=== PATIENT | male | born 1970 | race Caucasian/White ===

== ENCOUNTER 2018-05-24 13:55 | Inpatient (IN) ==
[2018-05-24] MEDS ORDERED: Lidocaine -MPF 1% 5 ML AMPUL INFILT ONE ×2 (14:08→14:29)
[2018-05-24] MEDS ORDERED: Tdap (Boostrix) Vaccine 0.5 ML SYRINGE IM ONE (14:08)
[2018-05-24] MEDS ORDERED: *HR* FentaNYL (PF) 100 MCG/2 ML VIAL IVP ONE (14:08)
--- NOTE | 2018-05-24 14:23 | Emergency Department Note ---
Addendum entered and electronically signed by Enzo Owen DO 05/25/18 10:56: The patient had originally wanted to go home. He attempted to get out of bed but was unable to move. He was in significant pain at that time and was agreeable with admission. I spoke with the admitting hospitalist Dr. Cox who accepted the patient to his service for further management. Original Note: Disposition Clinical Impression: Left hip pain Hand laceration Qualifiers: Encounter type: initial encounter Foreign body presence: without foreign body Laterality: left Qualified Code(s): S61.412A - Laceration without foreign body of left hand, initial encounter Disposition: Home, Self-Care Condition: Good Instructions: Suture Care (ED), Laceration (ED), Hip Pain (ED) Reasons to Return/Additional Instructions: Please take the Flexeril as prescribed as needed for pain. Please be aware that this can make you drowsy. Please follow-up with Dr. Bettencourt with orthopedic surgery. Please call his office first thing Saturday morning at the number provided to schedule an appointment for reevaluation. Please keep your hand dry and clean until evaluated by orthopedic surgery. Please return at any time if worsening of symptoms, loss of sensation, unable to move your hand or any concerns. Prescriptions: Cyclobenzaprine [Flexeril] 10 mg PO BID PRN #14 tablet PRN Reason: muscle spasms Referrals: NONE,PCP [Primary Care Provider] - Dave Bettencourt MD [Partnered Physician] - Forms: ED Satisfaction Letter Time of Disposition: 17:18 Fall HPI - General Chief Complaint: ED Fall Stated Complaint: L hip injury, fall Time Seen by Provider: 05/24/18 14:06 Source: patient, EMS Mode of arrival: EMS Limitations: physical limitation Nursing Notes Reviewed: Yes Vital Signs Reviewed: Yes - History of Present Illness HPI Narrative: 48-year-old male no medical history presents to the ER via EMS with a complaint of left hip pain and left hand pain status post fall. The patient was standing on a lawn chair never he lost his balance. Appears that he cut his left hand against a piece of metal while falling. He landed on his left side. He was unable to stand and had to call for help. He denies any loss of consciousness. No chest pain, shortness of breath, neck pain, back pain. No numbness tingling or paresthesias. No other complaints. Pt Subjective Complaint: fall Onset (ago): [employer] Fall From: standing Place Fall Occurred: home Loss of Consciousness: none Prolonged Down Time?: no Symptoms Prior to Fall: none Context: tripped/slipped Location of injury - extremities: Left: hand, hip Associated symptoms (after fall): Reports: unable to walk. Denies: headache, neck pain, numbness, weakness, chest pain, shortness of breath, abdominal pain - Related Data Previous Rx's Medication Instructions Recorded Ibuprofen [Motrin] 800 mg PO Q8HR #30 tablet 06/21/15 Cyclobenzaprine [Flexeril] 10 mg PO BID PRN #14 tablet 05/24/18 Allergies Allergy/AdvReac Type Severity Reaction Status Date / Time No Known Allergies Allergy Verified 06/23/15 14:36 All systems ED: reviewed and negative except as stated. Cardiovascular: Denies: chest pain Respiratory: Denies: dyspnea Gastrointestinal: Denies: abdominal pain Musculoskeletal: Reports: other (Left hip pain, left hand pain). Denies: back pain, neck pain Neurological: Denies: headache Fall PMH - Past Medical History Medical history: Reports: no medical history Psychiatric history: Reports: no psych history - Social History Smoking Status: Current every day smoker Alcohol use: Reports: none Drug use: Reports: none Physical Exam - General Limitations: no limitations General appearance: alert, in no apparent distress - Head Head exam: atraumatic, normocephalic, normal inspection - Eye Eye exam: Present: normal appearance - ENT ENT exam: normal exam - Neck Neck exam: Present: normal inspection, full ROM. Absent: tenderness - Chest Chest inspection: Present: normal inspection, symmetric chest wall rise. Absent: tenderness - Respiratory Respiratory exam: Present: normal lung sounds bilaterally - Cardiovascular Cardiovascular exam: Present: regular rate, normal rhythm, normal heart sounds - Abdominal Exam Abdominal exam: Present: soft, Non-Tender. Absent: tenderness, distention, guarding, rigidity - Extremities Exam Extremities exam: Present: normal inspection, full ROM - Expanded Upper Extremity Exam Shoulder exam: Present: normal inspection, full ROM Arm exam: Present: normal inspection, full ROM Elbow exam: Present: normal inspection, full ROM Forearm/Wrist exam: Present: normal inspection, full ROM Hand exam: Present: full ROM Hand L/R front image: 1 - laceration (There is a gaping laceration that involves the majority of the volar surface of the left hand over the palmar crease into the subcutaneous tissue. No obvious tendon involvement.) 2 - laceration (Roughly one similar laceration interdigital) Neuromotor exam: Normal: thumb opposition, thumb IP flexion, thumb adduction Neurosensory exam: Normal: radial nerve, ulnar nerve, median nerve Vascular exam: Normal: capillary refill, radial pulse - Expanded Lower Extremity Exam Hip/Pelvis exam: Present: normal inspection, tenderness (The patient has tenderness to the ASIS of the left hip.). Absent: full ROM Upper leg exam: Present: normal inspection Knee exam: Present: normal inspection, other (Left knee is in a knee brace) Lower leg exam: Present: normal inspection, full ROM Ankle exam: Present: normal inspection, full ROM Foot/toe exam: Present: normal inspection, full ROM Neurovascular/Tendon exam: Absent: motor deficit, sensory deficit - Neurological Exam Neurological exam: Present: alert, other (GCS 15, no focal deficits, moves all extremities with the exception of the left leg given his hip pain without difficulty) - Skin Skin exam: Present: warm, dry Course Course Narrative: Patient seen and examined. Vital signs reviewed. Bedside fast negative by my interpretation. Plan for imaging of the left hand and hip. 2 strokes update. Potential laceration repair versus discussed with orthopedics. - Reevaluation(s) Reevaluation #1: Discussed results of hip x-ray with the patient. Still in significant pain. Given a dose of Dilaudid. Plan to obtain CT imaging of the hip. Reevaluation #2: Patient continued to have pain during my laceration repair. I believe he is having muscle spasms at this time. CT imaging reviewed which is negative. Plan to give him some Valium here. Reevaluation #3: Patient still having pain after Valium. Given another milligram of Dilaudid. We discussed admission versus outpatient. He states that he has been somewhat ambulatory maybe 50% of the time since his injury with his knee. He has been walking with crutches. He would prefer not to be admitted at this time and would rather go home. - Consultations Consultation #1: I spoke with the on-call orthopedic surgeon Dr. Bettencourt. I discussed the patient's history, exam, concern for his left hand. He has a gaping wound to the palmar surface of his left hand. Does not appear to involve tendons. Hemostasis achieved at this point. He recommended to place a few 30 sutures and have the patient follow-up in the office for definitive management. Vital Signs Temperature 98.9 F 05/24/18 13:59 Pulse Rate 96 05/24/18 13:59 Respiratory Rate 18 05/24/18 13:59 Blood Pressure 153/102 05/24/18 13:59 O2 Sat by Pulse Oximetry 100 05/24/18 13:59 Temperature 98.9 F 05/24/18 13:59 Pulse Rate 90 05/24/18 17:18 Respiratory Rate 18 05/24/18 17:18 Blood Pressure 151/93 05/24/18 17:18 O2 Sat by Pulse Oximetry 95 05/24/18 17:18 Oxygen Delivery Oxygen Delivery Room Air Procedures - Laceration Laceration 1 Site: hand Side (If applicable): left Size (cm): 8 Description: linear, flap Depth: simple, single layer (w/ subcutaneous involvement) Local Anesthetic: lidocaine 1% Amount of Anesthesia Used (mL): 8 Pre-repair: wound explored, irrigated extensively, deep structures intact, wound margins revised Skin layer closed with: other (prolene) Size: 3-0 Number of sutures/olive: 3 Technique: simple, interrupted Technique: other (3 simple interrupted sutures were placed to loosely ap proximate the main flap over his palmar crease. The wound was extensively irrigated with Water and chlorhexidine scrub was used.) Fall - [facility] Narrative Medical decision making narrative: 48-year-old male presenting with a fall off a lawn chair. No loss of consciousness. Injury sustained to the left hand and hip. He has a complex laceration to the palmar surface of his left hand. This case was discussed with the on-call orthopedic provider who recommended to clean out the wound, approximate with a few sutures and he would see him in the office. CT imaging is unremarkable for the hip. Patient treated for muscle spasms. He is to follow-up on Saturday morning with the orthopedic shoes salesperson. - Radiology Data Radiology results reviewed: Yes I reviewed the patient's radiology results. Hand X-Ray 05/24/18 14:06 IMPRESSION: 1. Laceration with no radiopaque foreign body identified. 2. No acute osseous abnormality evident. D/ / Corby Green MD / Corby Green MD Interpreting Provider: Corby Green MD Hip X-Ray 05/24/18 14:06 IMPRESSION: No acute abnormality detected. D/ / Anil Stahl MD / Anil Stahl MD Interpreting Provider: Anil Stahl MD Hip CT 05/24/18 14:55 IMPRESSION: No acute fracture or dislocation is seen involving the left hip. No soft tissue abnormalities are identified Urinary bladder distention. D/ / Anil Stahl MD / Anil Stahl MD Interpreting Provider: Anil Stahl MD
[2018-05-24] MEDS ORDERED: *HR* HYDROmorphone (PF) 1 MG/ML SYRINGE IVP ONE ×3 (14:55→18:15)
--- NOTE | 2018-05-24 15:50 | Emergency Department Note ---
Disposition Clinical Impression: Left hip pain Hand laceration Qualifiers: Encounter type: initial encounter Foreign body presence: without foreign body Laterality: left Qualified Code(s): S61.412A - Laceration without foreign body of left hand, initial encounter Disposition: Home, Self-Care Condition: Good Instructions: Suture Care (ED), Laceration (ED), Hip Pain (ED) Reasons to Return/Additional Instructions: Please take the Flexeril as prescribed as needed for pain. Please be aware that this can make you drowsy. Please follow-up with Dr. Bettencourt with orthopedic surgery. Please call his office first thing Saturday morning at the number provided to schedule an appointment for reevaluation. Please keep your hand dry and clean until evaluated by orthopedic surgery. Please return at any time if worsening of symptoms, loss of sensation, unable to move your hand or any concerns. Prescriptions: Cyclobenzaprine [Flexeril] 10 mg PO BID PRN #14 tablet PRN Reason: muscle spasms Referrals: Dave Bettencourt MD [Partnered Physician] - NONE,PCP [Primary Care Provider] - Forms: ED Satisfaction Letter General Adult HPI - General Chief complaint: ED Fall Stated complaint: L hip injury, fall Time Seen by Provider: 05/24/18 14:06 Source: patient, EMS Mode of arrival: EMS Limitations: no limitations - History of Present Illness Pain Scale: 10 - Related Data Previous Rx's Medication Instructions Recorded Ibuprofen [Motrin] 800 mg PO Q8HR #30 tablet 06/21/15 Cyclobenzaprine [Flexeril] 10 mg PO BID PRN #14 tablet 05/24/18 Allergies Allergy/AdvReac Type Severity Reaction Status Date / Time No Known Allergies Allergy Verified 06/23/15 14:36 Cardiovascular: Denies: chest pain Respiratory: Denies: dyspnea Gastrointestinal: Denies: abdominal pain Musculoskeletal: Reports: other (Left hip pain, left hand pain). Denies: back pain, neck pain Neurological: Denies: headache Past Medical History - Past Medical History Medical history: Reports: no medical history Psychiatric history: Reports: no psych history - Social History Smoking Status: Current every day smoker Smokeless Tobacco Status: No Alcohol use: Reports: none Drug use: Reports: none Physical Exam - General Limitations: no limitations General appearance: alert, in no apparent distress Course Vital Signs Temperature 98.9 F 12/08/18 13:59 Pulse Rate 96 05/24/18 13:59 Respiratory Rate 18 05/24/18 13:59 Blood Pressure 153/102 05/24/18 13:59 O2 Sat by Pulse Oximetry 100 05/24/18 13:59 Temperature 98.9 F 05/24/18 13:59 Pulse Rate 90 05/24/18 17:18 Respiratory Rate 18 05/24/18 17:18 Blood Pressure 151/93 05/24/18 17:18 O2 Sat by Pulse Oximetry 95 05/24/18 17:18 Oxygen Delivery Oxygen Delivery Room Air Medical Decision Making - Medical Records Medical records reviewed: Yes I reviewed the patient's medical records. - Radiology Data Radiology results reviewed: Yes I reviewed the patient's radiology results. Attestation Statement - Attestation Attestation: I examined this patient and my medical decision-making was reviewed with the Resident Physician. I agree with the documented findings, disposition and treatment plan as described except to the extent set forth below. 48-year-old male presents to the ER for a fall. Patient fell off a lawn chair today. He was oriented a brace in splint to the left lower extremity due to for a meniscal repair and a fractured tibia. He lost his balance and fell off a lawn chair landing on left hip and cut left palm through sheet metal. The laceration extends all the way across the left home. Approximately 4-5 inches length. It does extend down into the subcutaneous fat region. It appears all tendons are intact. He is able to flex all 5 digits without difficulty. This follows along the crease of the left palm. We did speak with orthopedics on-call. They wanted us to put a few stitches in this wound and have him follow up in their office. X-rays of the left hand were negative. X- rays of left hip are normal as well. The left hand laceration was repaired by Dr. Owen. 3 sutures were placed in the left palm. This was supervised by myself. Orthopedics wanted this with loose approximation and they would see him on Saturday for follow-up.
[2018-05-24] MEDS ORDERED: Ketorolac 15 MG/ML VIAL IVP ONE (16:12)
[2018-05-24] MEDS ORDERED: diazePAM 10 MG/2 ML SYRINGE IVP ONE (16:52)
[2018-05-24] MEDS ORDERED: 0.9 % Sodium Chloride 500 ML IVC ONE (18:54)
[2018-05-24] MEDS ORDERED: ceFAZolin 1,000 MG in Water for inj. (sterile) 20 ML 10 ML IVP ONE (19:02)
[2018-05-24 19:22] LABS: Basophils % 0.2 %; Eosinophils # 0.3 K/mcL (0.0-0.6); Eosinophils % 1.9 %; Hematocrit 37.7 % (37.5-50.1); Hemoglobin 12.7 g/dL (12.9-16.9); Immature Granulocytes % 0.4 % (0-4); Lymphocytes % 14.4 %; Mean Corpuscular HGB Conc 33.7 g/dL (31.6-35.5); Mean Corpuscular Hemoglobin 32.1 pg (28.0-33.3); Mean Corpuscular Volume 95.2 fL (83.0-100.0); Mean Platelet Volume 9.5 fL (9.4-12.4); Monocytes # 0.9 K/mcL (0.0-1.3); Monocytes % 6.4 %; Neutrophils # 10.7 K/mcL (1.6-8.9); Platelet Count 389 K/mcL (140-400); Red Blood Count 3.96 M/mcL (4.19-5.50); Red Cell Distribution Width 12.3 % (11.5-14.5); Segmented Neutrophils % 76.7 %
[2018-05-24 19:30] LABS: INR 1.1; Prothrombin Time 12.1 Seconds (9.4-12.1)
[2018-05-24 19:41] LABS: BUN/Creatinine Ratio 13 (6-26); Blood Urea Nitrogen 14 mg/dL (6-20); Calcium 9.3 mg/dL (8.6-10.3); Carbon Dioxide 21 mEq/L (23-29); Chloride 108 mEq/L (98-107); Creatine Kinase 130 Units/L (30-223); Glucose 103 mg/dL (70-105); Osmolality,Calculated 285 (280-300); Potassium 3.8 mEq/L (3.5-5.1); Sodium 137 mEq/L (136-145); eGFR For Non-African Americans > 60 (> 60)
[2018-05-24] MEDS ORDERED: Orphenadrine 60 MG/2 ML VIAL IV ONE (19:56)
[2018-05-24] MEDS ORDERED: Naloxone 0.4 MG/ML INJ IVP PRN (20:32)
[2018-05-24] MEDS: *HR* OxyCODONE Immed Rel 5 MG TABLET PO PRN (21:01)
--- NOTE | 2018-05-24 22:54 | Internal Med History&Physical ---
Date of Encounter: 05/25/18 Time of Encounter: 22:00 Internal Medicine - H&P: HPI Chief complaint: Fall resulting in left hand/hip injury Admitted From: Emergency Dept Plans for Post Hospital Care: Home History of present illness: Mr. Soto is a 48 year old male w/no medical hx presents from the ED w/CC of lacerated left hand and left hip injury sustained when he fell at home today at approximately 13:00. Pt. states he was working at home working with sheet metal and started on a lawn chair to secure sheet-metal when chair broke. Patient reports grabbing this sheet-metal to prevent fall, slicing his left hand and falling with all of his weight on left hip. Patient denies hitting head or LOC, presyncope, or history of falls. Patient does report having left knee procedure on February 05 and recently breaking his left leg after falling off his porch while on crutches. Patient reports severe pain in left hip and hand. No alleviating or aggravating factors. Patient denies recent illness, fever, chills, nausea, vomiting, headache, changes in vision, unusual bleeding, chest pain, shortness of breath, abdominal pain, diarrhea, constipation, dizziness, lightheadedness, numbness, tingling, or syncope. Past Med Surg Social Fam HX - Past Medical History Source: patient, old records reviewed Medical history: no medical history Psychiatric history: no psych history - Past Surgical History Additional surgical history: L meniscus repair, fibula fx & repair - Social History Smoking Status: Current every day smoker Packs per day: < 1 PPWeek Smokeless Tobacco Status: No Alcohol use: none Drug use: none Current living situation: Home, With Family Activity Level: Independent ambulation, Very active Recent Out of Country Travel Within the Last 8 Weeks: No Exposure or Possible Exposure to Illness During Travel: No - Family History Father Race: Family Member Ethnicity: Non- Living Status: Age at : 72 Cause of : Mesothemioma Hx Family Cardiac Disorders: Yes (CAD) Hx Family Respiratory Disorders: Yes (Mesothemioma) Mother Race: Family Member Ethnicity: Non- Living Status: Still Living Hx Family Musculoskeletal Disorders: Yes (Arthritis) Brother Race: Family Member Ethnicity: Non- Living Status: Age at : 44 Cause of : OD Hx Family Psychosocial Disorders: Yes (Drug abuse) Sister History Unknown: Yes Race: Family Member Ethnicity: Non- Living Status: Still Living Internal Medicine - H&P: Meds Ibuprofen [Motrin] 800 mg PO Q8HR #30 tablet 06/21/15 [Rx] Cyclobenzaprine [Flexeril] 10 mg PO BID PRN #14 tablet 05/24/18 [Rx] Allergy/AdvReac Type Severity Reaction Status Date / Time No Known Allergies Allergy Verified 06/23/15 14:36 All Systems PM: A 10-system review of systems was performed and is negative for pertinent findings except as documented above in the HPI. - Constitutional Constitutional: no chills, no fever(s), no night sweats - EENT Eyes: no change in vision, no discharge, no pain, no photophobia Ears: no ear discharge, no ear pain, no tinnitus Nose, mouth and throat: no dysphagia, no nasal discharge, no neck pain, no sore throat - Breasts Breasts: as per HPI - Cardiovascular Cardiovascular ROS IM: no chest pain, no diaphoresis, no dyspnea, no lightheadedness, no palpitations, no syncope - Respiratory Respiratory: no cough, no dyspnea, no wheezing, no excessive phlegm production - Gastrointestinal Gastrointestinal: no abdominal pain, no diarrhea, no hematemesis, no hematochezia, no melena, no nausea, no vomiting - Genitourinary Genitourinary ROS male: as per HPI - Musculoskeletal Musculoskeletal ROS IM: no numbness, no tingling - Integumentary Integumentary IM: no rash, no unusual bruising - Neurological Neurological ROS: no confusion, no convulsions, no focal weakness, no numbness, no tingling, no tremor(s) - Psychiatric Psychiatric: as per HPI - Endocrine Endocrine IM: as per HPI - Hematologic/Lymphatic Hematologic/Lymphatic: no easy bruising - Allergic/Immunologic Allergic/Immunologic: as per HPI - Constitutional Vitals: Temp Pulse Resp BP Pulse Ox 98.9 F 105 16 150/69 94 05/24/18 20:43 05/24/18 20:43 05/24/18 20:43 05/24/18 20:43 05/24/18 21:36 General appearance: Present: cooperative, A&O X 3, pleasant, severe distress (Left hip pain), answers questions appropriately Exam: Patient examined at bedside. Pt. attempting to get comfortable in bed but has s evere pain in left hip w/movement. Some pain in left hand d/t laceration. Pt. denies any other sx or complaints at this time. VS: 98.9F temp, HR 105, RR 16, BP 150/69, SpO2 94% on RA. - Head Head exam: Present: atraumatic, normocephalic - Eye Eye exam: Present: PERRL, conjuntiva pink, sclera anicteric Pupils: Present: PERRL - ENT ENT exam: Present: normal exam - Neck Neck exam general surgery: Present: normal inspection, supple, trachea midline. Absent: lymphadenopathy - Respiratory Respiratory exam: Present: CTAB. Absent: accessory muscle use, rales, rhonchi, wheezes - Cardiovascular Cardiovascular exam: Present: RRR, +S1, +S2. Absent: diastolic murmur, gallop, rubs, systolic murmur - GI/Abdominal GI/Abdominal exam: Present: normal bowel sounds, soft, no peritoneal signs. Absent: distended, tenderness - Rectal Rectal exam: Present: deferred - Additional comments: exam deferred. - Extremities Exam Extremities exam: Present: warm, radial pulses palpable and symmetrical. Absent: calf tenderness, cyanotic, pedal edema - Back Exam Back exam: Present: normal inspection - Neurological Exam Neurological exam: Present: alert, CN II-XII intact, oriented X3, no focal deficits. Absent: pronater drift, facial droop, speech deficit - Psychiatric Psychiatric exam: Present: normal affect, normal mood - Skin Skin exam: Present: dry, intact Internal Med - H&P Results - Labs CBC & Chem 7: 05/24/18 19:06 05/24/18 19:06 Labs: Short CBC 05/24/18 Range/Units 19:06 WBC 14.0 H (4.3-11.1) K/mcL Hgb 12.7 L (12.9-16.9) g/dL Hct 37.7 (37.5-50.1) % Plt Count 389 (140-400) K/mcL Neutrophils # 10.7 H (1.6-8.9) K/mcL BMP 05/24/18 19:06 Sodium 137 Potassium 3.8 Chloride 108 H Carbon Dioxide 21 L BUN 14 Creatinine 1.06 Glucose 103 Calcium 9.3 - Impressions ITS Impressions Hand X-Ray 05/24/18 14:06 IMPRESSION: 1. Laceration with no radiopaque foreign body identified. 2. No acute osseous abnormality evident. D/ / Corby Green MD / Corby Green MD Interpreting Provider: Corby Green MD Hip X-Ray 05/24/18 14:06 IMPRESSION: No acute abnormality detected. D/ / Anil Stahl MD / Anil Stahl MD Interpreting Provider: Anil Stahl MD Hip CT 05/24/18 14:55 IMPRESSION: No acute fracture or dislocation is seen involving the left hip. No soft tissue abnormalities are identified Urinary bladder distention. D/ / Anil Stahl MD / Anil Stahl MD Interpreting Provider: Anil Stahl MD - Diagnostic Studies Other Images Additional comments: Impressions Hand X-Ray 05/24/18 14:06 IMPRESSION: 1. Laceration with no radiopaque foreign body identified. 2. No acute osseous abnormality evident. D/ / Corby Green MD / Corby Green MD Interpreting Provider: Corby Green MD Hip X-Ray 05/24/18 14:06 IMPRESSION: No acute abnormality detected. D/ / Anil Stahl MD / Anil Stahl MD Interpreting Provider: Anil Stahl MD Hip CT 05/24/18 14:55 IMPRESSION: No acute fracture or dislocation is seen involving the left hip. No soft tissue abnormalities are identified Urinary bladder distention. D/ / Anil Stahl MD / Anil Stahl MD Interpreting Provider: Anil Stahl MD - Assessment and plan (1) Left hip pain Current Visit: Yes Status: Acute Assessment and plan: Acute left hip pain d/t fall sustained today at home while working on the house. Pt. states he was standing on a lawn chair trying to secure sheet metal when the chair broke and he fell on left hip w/full weight. Pt. reports severe pain in left hip w/movement. Bed rest. Arvizu catheter ordered d/t immobility and pain w/movement. Orthopedic Surgery consulted in ED and I appreciate the consult and recommendations as always. Stair-step pain medications for pain mgmt. PT/OT consults order for rehabilitation needs for post-discharge planning. Will monitor pt. and f/u labs. Pt. is moderate risk for complications and further morbidity d/t recent fall resulting in broken left leg, fall today resulting in lacerated left hand and left hip injury, severe pain that is not controlled, immobility, and risk for infection d/t laceration of left hand. Observation. (2) Hand laceration Current Visit: Yes Status: Acute Assessment and plan: Acute laceration of left hand sustained during fall when pt. grabbed sheet metal to prevent fall. Stitches in ED. Tdap booster given. Pt. received Ancef in ED and will continue 2,000 mg Q8HR for infection coverage. Orthopedic Surgery consulted in ED and I appreciate the consult and recommendations as always. Stair-step pain medications for pain mgmt. Qualifiers: Encounter type: initial encounter Foreign body presence: without foreign body Laterality: left Qualified Code(s): S61.412A - Laceration without foreign body of left hand, initial encounter (3) DVT prophylaxis Current Visit: Yes Status: Acute Assessment and plan: Bilateral SCDs on LEs for DVT prophylaxis. - Time Spent With Patient Total time spent is greater than 50% in coordination of care (as documented) at patient's floor/unit and/or counseling patient: Greater than 35 minutes
[2018-05-24] MEDS: *HR* HYDROcodone/Acet 5/325 mg TABLET PO PRN (23:34)
[2018-05-25] MEDS: *HR* OxyCODONE Immed Rel 5 MG TABLET PO PRN ×5 (02:58→21:39)
[2018-05-25] MEDS ORDERED: *HR* FentaNYL (PF) 100 MCG/2 ML VIAL IVP ONE (03:02)
[2018-05-25] MEDS: *HR* HYDROcodone/Acet 5/325 mg TABLET PO PRN ×3 (05:47→19:42)
[2018-05-25 06:21] LABS: Basophils % 0.2 %; Eosinophils # 0.2 K/mcL (0.0-0.6); Eosinophils % 2.2 %; Hematocrit 35.6 % (37.5-50.1); Hemoglobin 11.8 g/dL (12.9-16.9); Immature Granulocytes % 0.2 % (0-4); Lymphocytes # 1.7 K/mcL (0.6-4.6); Lymphocytes % 18.5 %; Mean Corpuscular HGB Conc 33.1 g/dL (31.6-35.5); Mean Corpuscular Hemoglobin 32.2 pg (28.0-33.3); Mean Corpuscular Volume 97.3 fL (83.0-100.0); Mean Platelet Volume 9.8 fL (9.4-12.4); Monocytes # 0.8 K/mcL (0.0-1.3); Monocytes % 8.8 %; Neutrophils # 6.3 K/mcL (1.6-8.9); Platelet Count 332 K/mcL (140-400); Red Blood Count 3.66 M/mcL (4.19-5.50); Red Cell Distribution Width 12.3 % (11.5-14.5); Segmented Neutrophils % 70.1 %
[2018-05-25 06:42] LABS: Alanine Aminotransferase 12 Units/L (7-52); Albumin/Globulin Ratio 1.4 (1.1-2.2); Alkaline Phosphatase 89 Units/L (34-104); Aspartate Amino Transferase 12 Units/L (13-39); BUN/Creatinine Ratio 12 (6-26); Bilirubin,Total 0.6 mg/dL (0.3-1.0); Blood Urea Nitrogen 11 mg/dL (6-20); Calcium 9.2 mg/dL (8.6-10.3); Carbon Dioxide 20 mEq/L (23-29); Chloride 103 mEq/L (98-107); Globulin 2.8 g/dL (2.4-3.5); Glucose 101 mg/dL (70-105); Osmolality,Calculated 276 (280-300); Potassium 3.7 mEq/L (3.5-5.1); Sodium 133 mEq/L (136-145); Total Protein 6.8 g/dL (6.4-8.9); eGFR For Non-African Americans > 60 (> 60)
[2018-05-25] MEDS: Ibuprofen 400 MG TABLET PO PRN ×3 (07:19→23:46)
[2018-05-25 10:54] LABS: Chol/HDL Ratio 6.1 (0-4.9)
[2018-05-25] MEDS ORDERED: Gadolinium Contrast Agent (WT Based) IV PRN (13:52)
--- NOTE | 2018-05-25 14:20 | Orthopedic Consult Note ---
Date of Encounter: 05/25/18 Time of Encounter: 14:17 Assessment and Plan (1) Hand laceration Current Visit: Yes Status: Acute Left hand, large palmar laceration. The patient was taken to operating room tomorrow for expiration the wound, with irrigation debridement and formal wound closure. We discussed the tendons were completely explored. Qualifiers: Encounter type: initial encounter Foreign body presence: without foreign body Laterality: left Qualified Code(s): S61.412A - Laceration without foreign body of left hand, initial encounter (2) Left hip pain Current Visit: Yes Status: Acute No fractures noted, patient states he did have a stress fracture in the earlier this year. We will order an MRI of the left hip. 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 He was told by Dr. Ibarra that he will require a total knee arthroplasty I agree with this plan. We will discuss with Dr. Rico as far as the timing, if he wants it done sooner at [place]. Qualifiers: Chronicity: chronic Qualified Code(s): M25.562 - Pain in left knee; G89.29 - Other chronic pain History of Present Illness Chief complaint: Left hand laceration, left hip and knee pain HPI: Mr. Soto is a 48 year old male who was sitting on a chair when it collapsed, patient fell down on his left side. The patient sustained a laceration to the palms left hand on sheet metal. He also reports severe pain to the left hip. He reports ongoing pain to the left knee. The patient had a left knee scope done earlier this summer with meniscal repair. Later had a fall sustaining a stress fracture. The patient was told we will need a total knee replacement at some point. Past Med Surg Social Fam HX - Past Medical History Medical history: no medical history Psychiatric history: no psych history - Past Surgical History Additional surgical history: L meniscus repair, fibula fx & repair - Social History Smoking Status: Current every day smoker Packs per day: < 1 PPWeek Smokeless Tobacco Status: No Alcohol use: none Drug use: none - Family History Father Race: Family Member Ethnicity: Non- Living Status: Age at : 72 Cause of : Mesothemioma Hx Family Cardiac Disorders: Yes (CAD) Hx Family Respiratory Disorders: Yes (Mesothemioma) Mother Race: Family Member Ethnicity: Non- Living Status: Still Living Hx Family Musculoskeletal Disorders: Yes (Arthritis) Brother Race: Family Member Ethnicity: Non- Living Status: Age at : 44 Cause of : OD Hx Family Psychosocial Disorders: Yes (Drug abuse) Sister History Unknown: Yes Race: Family Member Ethnicity: Non- Living Status: Still Living Medications and Allergies Ibuprofen [Motrin] 800 mg PO Q8HR #30 tablet 06/21/15 [Rx] Cyclobenzaprine [Flexeril] 10 mg PO BID PRN #14 tablet 05/24/18 [Rx] Allergy/AdvReac Type Severity Reaction Status Date / Time No Known Allergies Allergy Verified 06/23/15 14:36 All Systems Reviewed: The remainder of the systems were reviewed and are negative Physical Exam - Constitutional Vitals: Temp Pulse Resp BP Pulse Ox 98.4 F 81 16 119/65 98 05/25/18 10:36 05/25/18 10:36 05/25/18 10:36 05/25/18 10:36 05/25/18 10:36 General appearance IM: disheveled, A&O X 3, no acute distress, obese, answers questions appropriately Exam: Head normocephalic/atraumatic Left upper extremity: Dressings taken down from hand. The patient has approxim ately a 10 cm laceration across his distal palmar into the index finger. It is loosely sutured closed. There is dry blood. Patient has good sensation at tips of all digits. Good capillary refill. He has minimal flexion at the PIP joints secondary to pain. Attempts extension is fairly painful. He has good wrist motion but also painful due to tenodesis effect with wrist extension. Thumb flexion is intact and extension. Left hip patient is diffusely tender although more tender anterior groin region. He has pain with passive range of motion of hip. Left knee is swollen and also diffusely tender. Limited range of motion secondary to pain. Grossly neurovascularly intact distally Results - Labs Result Diagrams: 05/25/18 05:36 05/25/18 05:36 Labs: Abnormal lab results RBC 3.66 M/mcL (4.19-5.50) L 05/25/18 05:36 Hgb 11.8 g/dL (12.9-16.9) L 05/25/18 05:36 Hct 35.6 % (37.5-50.1) L 05/25/18 05:36 Sodium 133 mEq/L (136-145) L 05/25/18 05:36 Carbon Dioxide 20 mEq/L (23-29) L 05/25/18 05:36 Calculated Osmolality 276 (280-300) L 05/25/18 05:36 AST 12 Units/L (13-39) L 05/25/18 05:36 Triglycerides 220 mg/dL (< 150) H 05/25/18 05:36 VLDL Cholesterol, Calc 44 mg/dL (< 31) H 05/25/18 05:36 HDL Cholesterol 27 mg/dL (40-59) L 05/25/18 05:36 Cholesterol/HDL Ratio 6.1 (0-4.9) H 05/25/18 05:36 H & H 05/24/18 05/25/18 Range/Units 19:06 05:36 Hgb 12.7 L 11.8 L (12.9-16.9) g/dL Hct 37.7 35.6 L (37.5-50.1) % All other labs normal. - Diagnostic results Wrist/Hand x-ray: image reviewed (Ghany normal, no bony involvement) Hip x-ray: image reviewed (Normal) Hip CT: report reviewed (No fractures noted) Knee x-ray: image reviewed (Significant traumatic arthropathy) Consult Discharge Plan - Plan Referrals: NONE,PCP [Primary Care Provider] -
--- NOTE | 2018-05-25 17:49 | Internal Med Progress Note ---
Hospitalist Progress Note - Encounter Date of Encounter: 05/25/18 Time of Encounter: 09:45 - Subjective Interval History: Mr Soto is currently in observation for L hip pain and hand laceration following a fall. He remains moderate to high risk. Mr Soto is having significant pain in his hip. Appears to be on lateral surface. Also some pain in knee though has chronic issues there. No fever or chills. Awaiting ortho input. - Exam Vitals: Temp Pulse Resp BP Pulse Ox 98.8 F 87 16 110/71 97 05/25/18 16:08 05/25/18 16:08 05/25/18 16:08 05/25/18 16:08 05/25/18 16:08 Exam: Gen: Alert and oriented. Mod distress due to pain. H: Normocephalic EENT: Mucus membranes dry Neck: Supple Heart: Regular rate and rhythm. No murmur. Not tachycardic Lungs: Clear bilaterally Abd soft and nontender Ext Tender lateral area of L hip and L knee. Dressing intact on hand. - Assessment and Plan (1) Left hip pain Current Visit: Yes Status: Acute Assessment and Plan: Pt currently in observation for L hip pain after a fall. Continue pain management. Awaiting ortho evaluation. (2) Hand laceration Current Visit: Yes Status: Acute Assessment and Plan: Pt with laceration of hand after fall. Currently on IV abx Ortho to see. (3) DVT prophylaxis Current Visit: Yes Status: Acute (4) Left knee pain Current Visit: Yes Status: Chronic Assessment and Plan: Pt with L knee pain which is chronic. Will check xray to r/o new pathology. (5) Tobacco abuse Current Visit: Yes Status: Chronic Assessment and Plan: Cessation counselling. - Time Spent with Patient Total time spent is greater than 50% in coordination of care (as documented) at patient's floor/unit and/or counseling patient: Internal Medicine: Result - Labs CBC & Chem 7: 05/25/18 05:36 05/25/18 05:36 Labs: Short CBC 05/24/18 05/25/18 Range/Units 19:06 05:36 WBC 14.0 H 9.0 (4.3-11.1) K/mcL Hgb 12.7 L 11.8 L (12.9-16.9) g/dL Hct 37.7 35.6 L (37.5-50.1) % Plt Count 389 332 (140-400) K/mcL Neutrophils # 10.7 H 6.3 (1.6-8.9) K/mcL BMP 05/24/18 05/25/18 19:06 05:36 Sodium 137 133 L Potassium 3.8 3.7 Chloride 108 H 103 Carbon Dioxide 21 L 20 L BUN 14 11 Creatinine 1.06 0.94 Glucose 103 101 Calcium 9.3 9.2 Liver Function 05/25/18 Range/Units 05:36 Total Bilirubin 0.6 (0.3-1.0) mg/dL AST 12 L (13-39) Units/L ALT 12 (7-52) Units/L Alkaline Phosphatase 89 (34-104) Units/L Albumin 4.0 (3.5-5.7) g/dL - ABG Interpretation ABG results: PT/INR, D-dimer PT 12.1 Seconds (9.4-12.1) 05/24/18 19:09 - Impressions Impressions Knee X-Ray 05/25/18 10:02 IMPRESSION: Questionable proximal fibular fracture on one view versus artifact. Suggest correlation with point tenderness. Joint effusion. Mottled density of bones about the knee joint, potentially related to underlying metabolic bone disease, osteopenia, or prior infection. D/ / Aleks Roth MD / Aleks Roth MD Interpreting Provider: Aleks Roth MD Consult Discharge Plan - Plan Referrals: NONE,PCP [Primary Care Provider] - (2) Hand laceration Qualifiers: Encounter type: subsequent encounter Foreign body presence: without foreign body Laterality: left Qualified Code(s): S61.412D - Laceration without foreign body of left hand, subsequent encounter (4) Left knee pain Qualifiers: Chronicity: chronic Qualified Code(s): M25.562 - Pain in left knee; G89.29 - Other chronic pain
[2018-05-26] MEDS: *HR* OxyCODONE Immed Rel 5 MG TABLET PO PRN ×4 (04:18→23:21)
[2018-05-26 04:47] LABS: Basophils % 0.1 %; Eosinophils # 0.2 K/mcL (0.0-0.6); Eosinophils % 2.8 %; Hematocrit 33.9 % (37.5-50.1); Hemoglobin 11.5 g/dL (12.9-16.9); Immature Granulocytes % 0.1 % (0-4); Lymphocytes # 1.3 K/mcL (0.6-4.6); Lymphocytes % 17.4 %; Mean Corpuscular HGB Conc 33.9 g/dL (31.6-35.5); Mean Corpuscular Hemoglobin 32.4 pg (28.0-33.3); Mean Corpuscular Volume 95.5 fL (83.0-100.0); Mean Platelet Volume 9.7 fL (9.4-12.4); Monocytes # 0.6 K/mcL (0.0-1.3); Monocytes % 8.5 %; Neutrophils # 5.4 K/mcL (1.6-8.9); Platelet Count 305 K/mcL (140-400); Red Blood Count 3.55 M/mcL (4.19-5.50); Red Cell Distribution Width 12.3 % (11.5-14.5); Segmented Neutrophils % 71.1 %
[2018-05-26 04:59] LABS: Alanine Aminotransferase 5 Units/L (7-52); Albumin 3.8 g/dL (3.5-5.7); Alkaline Phosphatase 76 Units/L (34-104); Aspartate Amino Transferase 16 Units/L (13-39); BUN/Creatinine Ratio 17 (6-26); Bilirubin,Total 0.3 mg/dL (0.3-1.0); Blood Urea Nitrogen 14 mg/dL (6-20); Calcium 8.9 mg/dL (8.6-10.3); Carbon Dioxide 24 mEq/L (23-29); Chloride 105 mEq/L (98-107); Glucose 109 mg/dL (70-105); Osmolality,Calculated 283 (280-300); Potassium 3.7 mEq/L (3.5-5.1); Sodium 136 mEq/L (136-145); Total Protein 6.7 g/dL (6.4-8.9); eGFR For Non-African Americans > 60 (> 60)
[2018-05-26 05:00] LABS: Albumin/Globulin Ratio 1.3 (1.1-2.2); Globulin 2.9 g/dL (2.4-3.5)
[2018-05-26] MEDS: *HR* HYDROcodone/Acet 5/325 mg TABLET PO PRN ×2 (06:18→12:47)
--- NOTE | 2018-05-26 10:18 | Internal Med Progress Note ---
<Clinton Ludwig - Last Filed: 05/26/18 16:30> Hospitalist Progress Note - Encounter Date of Encounter: 05/26/18 Time of Encounter: 10:17 - Subjective Interval History: Patient admitted for fall with laceration to left hand, blunt trauma to left hip and left knee. Orthopedics consulted, planning irrigation/debridement of left hand today, MRI of left hip today, TKA of left knee pending. Patients only complaint today is pain from injuries. - Exam Vitals: Temp Pulse Resp BP Pulse Ox 97.9 F 81 16 125/73 98 05/26/18 07:24 05/26/18 07:24 05/26/18 07:24 05/26/18 07:24 05/26/18 07:24 Exam: Gen: Alert and oriented. Mild distress due to pain. H: Normocephalic EENT: Mucus membranes dry Neck: Supple Heart: Regular rate and rhythm. No murmur. Not tachycardic Lungs: Clear bilaterally Abd soft and nontender Ext Tender lateral area of L hip and L knee. Dressing intact on hand. Sensation/motor/pulses intact in distal left extremities - Assessment and Plan (1) Left hip pain Current Visit: Yes Status: Acute Assessment and Plan: Pt currently in observation for L hip pain after a fall. Continue pain management. Awaiting ortho evaluation. Attempted MRI today, unable to complete due to pain/anxiety. Will order Fe ntanyl/Ativan for MRI. (2) Hand laceration Current Visit: Yes Status: Acute Assessment and Plan: Pt with laceration of hand after fall. Currently on IV abx Ortho to take to OR today (3) DVT prophylaxis Current Visit: Yes Status: Acute Assessment and Plan: Bilateral SCDs on LEs for DVT prophylaxis. (4) Left knee pain Current Visit: Yes Status: Chronic Assessment and Plan: Pt with L knee pain which is chronic. XRay demonstrated arthritis, Ortho recommending TKA (5) Tobacco abuse Current Visit: Yes Status: Chronic Assessment and Plan: Cessation counselling. - Time Spent with Patient Total time spent is greater than 50% in coordination of care (as documented) at patient's floor/unit and/or counseling patient: Internal Medicine: Result - Labs CBC & Chem 7: 05/26/18 03:54 05/26/18 03:54 Labs: Short CBC 05/26/18 Range/Units 03:54 WBC 7.5 (4.3-11.1) K/mcL Hgb 11.5 L (12.9-16.9) g/dL Hct 33.9 L (37.5-50.1) % Plt Count 305 (140-400) K/mcL Neutrophils # 5.4 (1.6-8.9) K/mcL BMP 05/26/18 03:54 Sodium 136 Potassium 3.7 Chloride 105 Carbon Dioxide 24 BUN 14 Creatinine 0.83 Glucose 109 H Calcium 8.9 Liver Function 05/26/18 Range/Units 03:54 Total Bilirubin 0.3 (0.3-1.0) mg/dL AST 16 (13-39) Units/L ALT 5 L (7-52) Units/L Alkaline Phosphatase 76 (34-104) Units/L Albumin 3.8 (3.5-5.7) g/dL - ABG Interpretation ABG results: PT/INR, D-dimer PT 12.1 Seconds (9.4-12.1) 05/24/18 19:09 - Impressions Impressions Knee X-Ray 05/25/18 10:02 IMPRESSION: Questionable proximal fibular fracture on one view versus artifact. Suggest correlation with point tenderness. Joint effusion. Mottled density of bones about the knee joint, potentially related to underlying metabolic bone disease, osteopenia, or prior infection. D/ / Aleks Roth MD / Aleks Roth MD Interpreting Provider: Aleks Roth MD Consult Discharge Plan - Plan Referrals: NONE,PCP [Primary Care Provider] - <Cooper Ty - Last Filed: 05/26/18 19:53> Hospitalist Progress Note - Encounter Date of Encounter: 05/26/18 - Exam Vitals: Temp Pulse Resp BP Pulse Ox 98.8 F 91 18 101/56 94 05/26/18 19:07 05/26/18 19:07 05/26/18 19:07 05/26/18 19:07 05/26/18 19:07 - Assessment and Plan (1) Left hip pain Current Visit: Yes Status: Acute (2) Hand laceration Current Visit: Yes Status: Acute (3) DVT prophylaxis Current Visit: Yes Status: Acute (4) Left knee pain Current Visit: Yes Status: Chronic (5) Tobacco abuse Current Visit: Yes Status: Chronic - Time Spent with Patient Total time spent is greater than 50% in coordination of care (as documented) at patient's floor/unit and/or counseling patient: Internal Medicine: Result - Labs CBC & Chem 7: 05/26/18 03:54 05/26/18 03:54 Labs: Short CBC 05/26/18 Range/Units 03:54 WBC 7.5 (4.3-11.1) K/mcL Hgb 11.5 L (12.9-16.9) g/dL Hct 33.9 L (37.5-50.1) % Plt Count 305 (140-400) K/mcL Neutrophils # 5.4 (1.6-8.9) K/mcL BMP 05/26/18 03:54 Sodium 136 Potassium 3.7 Chloride 105 Carbon Dioxide 24 BUN 14 Creatinine 0.83 Glucose 109 H Calcium 8.9 Liver Function 05/26/18 Range/Units 03:54 Total Bilirubin 0.3 (0.3-1.0) mg/dL AST 16 (13-39) Units/L ALT 5 L (7-52) Units/L Alkaline Phosphatase 76 (34-104) Units/L Albumin 3.8 (3.5-5.7) g/dL - ABG Interpretation ABG results: PT/INR, D-dimer PT 12.1 Seconds (9.4-12.1) 05/24/18 19:09 - Impressions Impressions Hip MRI 05/25/18 13:52 IMPRESSION: 1. Exam is limited in degraded by patient motion. 2. Signal changes in the lateral left femoral head and lateral left femoral head and neck junction are concerning for nondisplaced fracturing and marrow edema within these locations. 3. Suspected degenerative tearing and paralabral cyst formation of the anterior superior left acetabular labrum. The findings were sent to the [facility]iology Results Communication [facility] at 1:10 pm on 05/26/2018to be communicated to a licensed caregiver. The findings were sent to the Radiology Results Communication Center at 6:17 pm on 05/26/2018to be communicated to a licensed caregiver. D/ / 05/26/2018 13:18:08 Tristan Willis MD / latia Interpreting Provider: Tristan Willis MD - Attending Attestation I examined this patient and my medical decision-making was reviewed with the Resident Physician on 05/26/18. I agree with the documented findings, dispo sition and treatment plan as described except to the extent set forth below. Mr Soto is currently in observation for L hip pain and L hand laceration. He remains moderate to high risk. Mr Soto continues to have pain in hip and knee. Could not do MRI. To be repeated in morning. No fever or chills. No CP or SOB. Exam alert Comfortable at this time Mucus membranes dry Heart reg Lungs clear Abd soft and nontender I/P 1. L hip pain - pending MRI 2. L knee pain Further diagnoses and plan as above. <Clinton Ludwig - Last Filed: 05/26/18 16:30> (2) Hand laceration Qualifiers: Encounter type: subsequent encounter Foreign body presence: without foreign body Laterality: left Qualified Code(s): S61.412D - Laceration without foreign body of left hand, subsequent encounter (4) Left knee pain Qualifiers: Chronicity: chronic Qualified Code(s): M25.562 - Pain in left knee; G89.29 - Other chronic pain <Cooper Ty - Last Filed: 05/26/18 19:53> (2) Hand laceration Qualifiers: Encounter type: subsequent encounter Foreign body presence: without foreign body Laterality: left Qualified Code(s): S61.412D - Laceration without foreign body of left hand, subsequent encounter (4) Left knee pain Qualifiers: Chronicity: chronic Qualified Code(s): M25.562 - Pain in left knee; G89.29 - Other chronic pain
[2018-05-26] MEDS ORDERED: *HR* Morphine 2 MG/ML SYRINGE IVP ONE (13:41)
--- NOTE | 2018-05-26 16:55 | Orthopedics Progress Note ---
Date of Encounter: 05/26/18 Time of Encounter: 13:15 - Assessment and Plan (1) Hand laceration Current Visit: Yes Status: Acute Plan for surgery today for the hand laceration but due to not being able to complete the MRI for the hip will postpone until tomorrow. If surgery will be required for the hip then want to take care of both at same time to prevent going under anesthesia multiple times. Leave dressings to hand in place. Continue to elevate hand. Pain control per hospitalist. Can have dinner now. NPO after midnight tonight Qualifiers: Encounter type: subsequent encounter Foreign body presence: without foreign body Laterality: left Qualified Code(s): S61.412D - Laceration without foreign body of left hand, subsequent encounter (2) Left hip pain Current Visit: Yes Status: Acute Patient could not stay still for the MRI this morning due to pain. Dr. Bettencourt ordered morphine which patient received 30min prior to MRI this afternoon but again patient could not stay still long enough to complete the imaging. Will likely require sedation but will require a better MRI to confirm presence of a fracture. Recommend he receive an additional dose of morphine and will likely also require valium to be scheduled just before the MRI tomorrow morning. Continue nonweight bearing until further imaging completed. (3) Left knee pain Current Visit: Yes Status: Chronic Discussed options with patient. Patient would like to receive a left knee steroid injection during surgery for the hand. Will discuss xrays with Dr. Rico and timeframe for TKR. Would most likely do formal consult on outpatient basis but will discuss further with Dr. Rico after hip MRI results. Qualifiers: Chronicity: chronic Qualified Code(s): M25.562 - Pain in left knee; G89.29 - Other chronic pain Subjective Principal diagnosis: left hand laceration Interval history: Patient doing well, no events overnight. pain tolerable. He attempted an MRI this morning but he was unable to stay still long enough for the imaging to be completed due to pain and spasms in the left hip and knee. Denies any numbness or tingling to extremity or any calf pain. Objective Vital signs: Vital Signs Temp Pulse Resp BP Pulse Ox 05/26/18 15:50 99.0 F 80 16 127/71 95 05/26/18 07:24 97.9 F 81 16 125/73 98 05/26/18 04:38 97.9 F 75 16 105/68 97 05/26/18 00:13 98.0 F 80 18 125/67 98 05/25/18 19:57 98.2 F 81 17 115/70 97 05/25/18 19:50 97 Intake and Output 05/26/18 05/26/18 05/26/18 07:59 15:59 23:59 Intake Total 100 / 100 100 / 100 Output Total 1425 / 1425 Balance -1325 / -1325 100 / 100 Intake: IV Fluids 100 / 100 100 / 100 Ancef 2,000 MG In 0.9 % Sodium 100 / 100 100 / 100 Chloride 100 ML @ 200 mls/hr IVPB Q8HR [facility] Rx#:[id number] Oral 0 / 0 Output: Urine 1425 / 1425 Other: Weight 97.45 kg Patient Weight 05/26/18 23:59 Weight 97.45 kg Incision: clean and dry (dressings intact to left hand with no visible drainage.) - Labs CBC & BMP: 05/26/18 03:54 05/26/18 03:54 Labs: Abnormal lab results RBC 3.55 M/mcL (4.19-5.50) L 05/26/18 03:54 Hgb 11.5 g/dL (12.9-16.9) L 05/26/18 03:54 Hct 33.9 % (37.5-50.1) L 05/26/18 03:54 Glucose 109 mg/dL (70-105) H 05/26/18 03:54 ALT 5 Units/L (7-52) L 05/26/18 03:54 Triglycerides 220 mg/dL (< 150) H 05/25/18 05:36 VLDL Cholesterol, Calc 44 mg/dL (< 31) H 05/25/18 05:36 HDL Cholesterol 27 mg/dL (40-59) L 05/25/18 05:36 Cholesterol/HDL Ratio 6.1 (0-4.9) H 05/25/18 05:36 Consult Discharge Plan - Plan Referrals: NONE,PCP [Primary Care Provider] -
[2018-05-26] MEDS ORDERED: diazePAM 5 MG TABLET PO PRN (17:37)
[2018-05-26] MEDS ORDERED: *HR* OxyCODONE Immed Rel 5 MG TABLET PO PRN (17:39)
[2018-05-26] MEDS ORDERED: *HR* Morphine 2 MG/ML SYRINGE IVP PRN (17:40)
[2018-05-27] MEDS ORDERED: *HR* FentaNYL (PF) 100 MCG/2 ML VIAL IVP ONE (00:01)
[2018-05-27] MEDS ORDERED: *HR* LORazepam 2 MG/ML VIAL IVP ONE (00:01)
[2018-05-27] MEDS: *HR* OxyCODONE Immed Rel 5 MG TABLET PO PRN ×2 (03:56→11:54)
[2018-05-27] MEDS: Ibuprofen 400 MG TABLET PO PRN (06:01)
--- NOTE | 2018-05-27 07:34 | Internal Med Progress Note ---
<Lor Martinez - Last Filed: 05/27/18 10:25> Hospitalist Progress Note - Encounter Date of Encounter: 05/27/18 - Exam Vitals: Temp Pulse Resp BP Pulse Ox 98.5 F 78 17 135/79 96 05/27/18 08:04 05/27/18 08:04 05/27/18 08:04 05/27/18 08:04 05/27/18 08:04 - Assessment and Plan (1) Left hip pain Current Visit: Yes Status: Acute (2) Hand laceration Current Visit: Yes Status: Acute (3) DVT prophylaxis Current Visit: Yes Status: Acute (4) Left knee pain Current Visit: Yes Status: Chronic (5) Tobacco abuse Current Visit: Yes Status: Chronic - Time Spent with Patient Total time spent is greater than 50% in coordination of care (as documented) at patient's floor/unit and/or counseling patient: Internal Medicine: Result - Labs CBC & Chem 7: 05/27/18 06:52 05/27/18 06:52 Labs: Short CBC 05/27/18 Range/Units 06:52 WBC 7.4 (4.3-11.1) K/mcL Hgb 11.6 L (12.9-16.9) g/dL Hct 33.8 L (37.5-50.1) % Plt Count 314 (140-400) K/mcL Neutrophils # 5.0 (1.6-8.9) K/mcL BMP 05/27/18 06:52 Sodium 137 Potassium 3.7 Chloride 103 Carbon Dioxide 27 BUN 12 Creatinine 0.74 Glucose 98 Calcium 9.1 Liver Function 05/27/18 Range/Units 06:52 Total Bilirubin 0.4 (0.3-1.0) mg/dL AST 25 (13-39) Units/L ALT 3 L (7-52) Units/L Alkaline Phosphatase 77 (34-104) Units/L Albumin 4.0 (3.5-5.7) g/dL - ABG Interpretation ABG results: PT/INR, D-dimer PT 12.1 Seconds (9.4-12.1) 05/24/18 19:09 - Impressions Impressions Hip MRI 05/25/18 13:52 IMPRESSION: 1. Exam is limited in degraded by patient motion. 2. Signal changes in the lateral left femoral head and lateral left femoral head and neck junction are concerning for nondisplaced fracturing and marrow edema within these locations. 3. Suspected degenerative tearing and paralabral cyst formation of the anterior superior left acetabular labrum. The findings were sent to the Radiology Results Communication [facility] at 1:10 pm on 05/26/2018to be communicated to a licensed caregiver. The findings were sent to the Radiology Results Communication Center at 6:17 pm on 05/26/2018to be communicated to a licensed caregiver. D/ / 05/26/2018 13:18:08 Tristan Willis MD / latia Interpreting Provider: Tristan Willis MD Consult Discharge Plan - Plan Referrals: NONE,PCP [Primary Care Provider] - - Attending Attestation I examined this patient and my medical decision-making was reviewed with the Resident Physician Dr Ludwig. I agree with the documented findings, disposition and treatment plan as described except to the extent set forth below. Mr Soto is currently in observation for L hip fracture and L hand laceration. awake, cont left hip pain that is positional and currently tolerable. left hand limited rom fingers but denies sensory loss. no sob, fevers, chills, cp. awaiting or today gen- alert, awake,appears stated age eyes- pupils equal round cv- reg rate and rhythm, normal s1,s2, no murmurs appreciated, no le edema lungs- ctabl, no wheezing, rhonchi or crackles, normal resp effort abd- soft, non tender, non distended, + bs skin- left hand dressing intact, dried blood msk- no appreciable left leg shortening, pain with rom hip neuro- AAOx3, sensation intact to lt touch and equal in bl fingers acute L hip fracture - to OR with ortho today Left Hand Laceration - to OR with surgery today, on ancef L knee pain- XR with questionable prox fibular fracture vs artifact, + metabolic bone disease/osten[place]ia- [place] been reviewed by ortho- he will receive joint injection while in OR and fu with Dr Rico outpt to discuss TKR Further diagnoses and plan as documented by resident <Clinton Ludwig - Last Filed: 05/27/18 16:06> Hospitalist Progress Note - Encounter Date of Encounter: 05/27/18 Time of Encounter: 08:02 - Subjective Interval History: Patient received MRI of left hip yesterday demonstrating non-displaced fracture. Plan for hip pinning today in coordination with left hand irrigation and debridement. Intervention of left knee pending. Patient has no other complaints this AM and labs and vitals are stable. - Exam Vitals: Temp Pulse Resp BP Pulse Ox 98.6 F 73 16 118/74 97 05/27/18 03:53 05/27/18 03:53 05/27/18 03:53 05/27/18 03:53 05/27/18 03:53 Exam: Gen: Alert and oriented. Mild distress due to pain. H: Normocephalic EENT: Mucus membranes dry Neck: Supple Heart: Regular rate and rhythm. No murmur. Not tachycardic Lungs: Clear bilaterally Abd soft and nontender Ext Tender lateral area of L hip and L knee. Dressing clean, dry, intact on hand. Sensation/motor/pulses intact in distal left extremities - Assessment and Plan (1) Left hip pain Current Visit: Yes Status: Acute Assessment and Plan: MRI demonstrated non-displaced fracture of left hip, plan to pin in OR today by Ortho. (2) Hand laceration Current Visit: Yes Status: Acute Assessment and Plan: Pt with laceration of hand after fall. Day 3 of cefazolin Plan for irrigation and debridement in OR today by Ortho (3) DVT prophylaxis Current Visit: Yes Status: Acute Assessment and Plan: Bilateral SCDs on LEs for DVT prophylaxis. (4) Left knee pain Current Visit: Yes Status: Chronic Assessment and Plan: Pt with L knee pain which is chronic. XRay demonstrated arthritis, Ortho recommending TKA PLan to manage outpatient per Ortho (5) Tobacco abuse Current Visit: Yes Status: Chronic Assessment and Plan: Cessation counselling completed - Time Spent with Patient Total time spent is greater than 50% in coordination of care (as documented) at patient's floor/unit and/or counseling patient: Internal Medicine: Result - Labs CBC & Chem 7: 05/27/18 06:52 05/27/18 06:52 - ABG Interpretation ABG results: PT/INR, D-dimer PT 12.1 Seconds (9.4-12.1) 05/24/18 19:09 - Impressions Impressions Hip MRI 05/25/18 13:52 IMPRESSION: 1. Exam is limited in degraded by patient motion. 2. Signal changes in the lateral left femoral head and lateral left femoral head and neck junction are concerning for nondisplaced fracturing and marrow edema within these locations. 3. Suspected degenerative tearing and paralabral cyst formation of the anterior superior left acetabular labrum. The findings were sent to the Radiology Results Communication Center at 1:10 pm on 05/26/2018to be communicated to a licensed caregiver. The findings were sent to the Radiology Results Communication Center at 6:17 pm on 05/26/2018to be communicated to a licensed caregiver. D/ / 05/26/2018 13:18:08 Tristan Willis MD / latia Interpreting Provider: Tristan Willis MD <Lor Martinez - Last Filed: 05/27/18 10:25> (2) Hand laceration Qualifiers: Encounter type: subsequent encounter Foreign body presence: without foreign body Laterality: left Qualified Code(s): S61.412D - Laceration without foreign body of left hand, subsequent encounter (4) Left knee pain Qualifiers: Chronicity: chronic Qualified Code(s): M25.562 - Pain in left knee; G89.29 - Other chronic pain <Clinton Ludwig - Last Filed: 05/27/18 16:06> (2) Hand laceration Qualifiers: Encounter type: subsequent encounter Foreign body presence: without foreign body Laterality: left Qualified Code(s): S61.412D - Laceration without foreign body of left hand, subsequent encounter (4) Left knee pain Qualifiers: Chronicity: chronic Qualified Code(s): M25.562 - Pain in left knee; G89.29 - Other chronic pain
[2018-05-27 07:35] LABS: Basophils % 0.1 %; Eosinophils # 0.3 K/mcL (0.0-0.6); Eosinophils % 3.7 %; Hematocrit 33.8 % (37.5-50.1); Hemoglobin 11.6 g/dL (12.9-16.9); Immature Granulocytes % 0.1 % (0-4); Lymphocytes # 1.5 K/mcL (0.6-4.6); Lymphocytes % 20.7 %; Mean Corpuscular HGB Conc 34.3 g/dL (31.6-35.5); Mean Corpuscular Hemoglobin 32.6 pg (28.0-33.3); Mean Corpuscular Volume 94.9 fL (83.0-100.0); Mean Platelet Volume 9.7 fL (9.4-12.4); Monocytes # 0.6 K/mcL (0.0-1.3); Monocytes % 7.9 %; Platelet Count 314 K/mcL (140-400); Red Blood Count 3.56 M/mcL (4.19-5.50); Red Cell Distribution Width 12.1 % (11.5-14.5); Segmented Neutrophils % 67.5 %
--- NOTE | 2018-05-27 07:57 | Event Note ---
Date of Encounter: 05/27/18 Time of Encounter: 07:48 Discussed repeat MRI findings with patient and . Left Hip Fracture - plan for Left Hip Pinning today with . Patient was notified and in agreement with plan.
[2018-05-27 09:19] LABS: Alanine Aminotransferase 3 Units/L (7-52); Albumin/Globulin Ratio 1.3 (1.1-2.2); Alkaline Phosphatase 77 Units/L (34-104); Aspartate Amino Transferase 25 Units/L (13-39); BUN/Creatinine Ratio 16 (6-26); Bilirubin,Total 0.4 mg/dL (0.3-1.0); Blood Urea Nitrogen 12 mg/dL (6-20); Calcium 9.1 mg/dL (8.6-10.3); Carbon Dioxide 27 mEq/L (23-29); Chloride 103 mEq/L (98-107); Globulin 3.1 g/dL (2.4-3.5); Glucose 98 mg/dL (70-105); Osmolality,Calculated 284 (280-300); Potassium 3.7 mEq/L (3.5-5.1); Sodium 137 mEq/L (136-145); Total Protein 7.1 g/dL (6.4-8.9); eGFR For Non-African Americans > 60 (> 60)
[2018-05-27] MEDS: *HR* HYDROcodone/Acet 5/325 mg TABLET PO PRN (16:08)
[2018-05-27] MEDS ORDERED: BETAMETHASONE ONE (19:03)
[2018-05-27] MEDS ORDERED: [UNRECOGNIZED DRUG - OTHER] ONE (19:03)
--- NOTE | 2018-05-27 19:04 | Anesthesia Evaluation PreOp ---
Date of Encounter: 05/27/18 Time of Encounter: 19:01 - Past History Planned Operation: left hip pinning, left hand exploration and closure Cardiac History: Denies any Significant Hx Pulmonary History: Smoker UNDERWRITING SERVICE REPRESENTATIVE History: Denies Any Significant HX Other Medical History: Denies Any Significant HX Anesthesia History: No Prior Anesthetic Complications, Past Anesthesia (knee sx, orif fibula, meniscus repair) Alcohol Use: none Drug use: none Medications and Allergies No Known Home Drugs 05/25/18 [History] Allergy/AdvReac Type Severity Reaction Status Date / Time No Known Allergies Allergy Verified 05/25/18 16:06 - Meds/Allergy Pre-op Review Medications Reviewed: Yes Allergies Reviewed: Yes Beta Blockers on Current Med List: No Anesthesia Results - Labs 05/27/18 06:52 05/27/18 06:52 Anesthesia Exam Selected Entries 05/27/18 18:45 Temperature 98.7 F Pulse Rate 83 Respiratory Rate 17 Blood Pressure 144/74 O2 Sat by Pulse Oximetry 96 Oxygen Delivery Method Room Air Weight: 99kg NPO (# of Hours): 8 - HEENT Pupil (Motor): EOMI Mallampati: II Teeth: Edentulous Oral Opening: Greater than 3 - UNDERWRITING SERVICE REPRESENTATIVE LOC: Oriented UNDERWRITING SERVICE REPRESENTATIVE Motor: Normal RUE, Normal LUE, Normal RLE, Normal LLE, Normal Face UNDERWRITING SERVICE REPRESENTATIVE Sensory: Normal: RUE, LUE, RLE, LLE, Face - Cardiac Rhythm: Regular Murmur: None - Pulmonary Breath Sounds: bilateral Clear Respiratory Effort: Symmetrical Anesthesia Assess/Plan ASA Score: 2, E Level of consciousness: Cooperative, Oriented Anesthetic Plan: General Monitoring Plan: Standard Monitors Recovery Plan: PACU (agrees to GA)
[2018-05-27] MEDS ORDERED: *HR* FentaNYL (PF) 100 MCG/2 ML VIAL ONE ×2 (19:10→20:01)
[2018-05-27] MEDS ORDERED: *HR* Propofol 200 MG/20 ML VIAL IVP ONE (19:10)
[2018-05-27] MEDS ORDERED: *HR* Succinylcholine 200 MG/10 ML VIAL IVP ONE (19:35)
[2018-05-27] MEDS ORDERED: Ondansetron 4 MG/2 ML VIAL ONE (20:03)
[2018-05-27] MEDS ORDERED: Ketorolac 30 MG/ML VIAL ONE (20:03)
[2018-05-27] MEDS ORDERED: Dexamethasone 4 MG/ML VIAL ONE (20:03)
[2018-05-27] MEDS ORDERED: *HR* OxyCODONE/APAP 5/325 TABLET PO PRN ×2 (20:14→22:47)
[2018-05-27] MEDS ORDERED: Acetaminophen IV 1,000 MG/100 ML INFUS..BTL IVPB ONE (20:14)
[2018-05-27] MEDS ORDERED: *HR* HYDROmorphone (PF) 1 MG/ML SYRINGE IVP PRN ×2 (20:14→22:47)
[2018-05-27] MEDS ORDERED: *HR* Midazolam HCl 2 MG/2 ML VIAL IVP PRN ×2 (20:14→22:47)
[2018-05-27] MEDS ORDERED: Ringers Solution, Lactated 1,000 ML IVC SCH ×3 (20:15→22:47)
[2018-05-27] MEDS ORDERED: *HR* Morphine 10 MG/ML VIAL ONE (20:52)
--- NOTE | 2018-05-27 22:26 | Operative Note ---
Date of procedure: 05/27/18 Pre-op diagnosis: Left hip nondisplaced femoral neck fx, left knee arthritis, left hand lac Post-op diagnosis: same (Left hip nondisplaced femoral neck fracture. Left knee traumatic arthropathy. Left hand laceration with open palmar wound) Procedure: Left hip percutaneous pinning Left knee intra-articular steroid injection Left hand irrigation and debridement of open palmar wound, expiration wound with neurolysis of digital nerves, repair of skin lacerations and distal palm and into index long and ring fingers totaling 20 cm Implants: [place] ASNIS 6.5 mm cannulated screws Anesthesia: LORI Surgeon: Dave Bettencourt Was there an recreation assistant present: No Estimated blood loss (cc): 25 Tourniquet Time (Minutes): 12 Specimen: 0 Condition: stable Disposition: PACU Procedure in Detail: The patient received IV antibiotics in the holding area, he was brought to the operating room, a sign in was performed, and he underwent general anesthesia on the hospital bed. The patient was then transferred to the OR fracture table in supine position. The patient was positioned against the groin post, with traction applied to the left lower extremity. The contralateral lower extremity was then placed onto a well-padded leg aponte keeping her hip flexed and abducted. Once the patient was well positioned, the x-ray C-arm was brought in and fluoroscopy shots of the hip were taken, adjusting the lower extremity, making sure we will get a good AP and lateral views. The fracture is nondisplaced, not visible on x-rays but seen on MRI. The left hip and thigh down to below the knee was then prepped and draped in standard technique. A timeout was performed. The patient was first given a steroid injection to his left knee. A 20-gauge spinal needle was inserted anterior laterally below the patella. I injected 1 mL of Celestone 6 mg per mL mixed with 4 mL's of 0.5% Marcaine. Moving to the hip, the guidewire was placed over the hip and it's position was checked under fluoroscopy. The guidewires in place percutaneously through skin and driven from the lateral cortex paralleling the inferior neck and staying central on the AP plane. This was driven up to the head, its position checked on AP and lateral views. A 3 cm longitudinal incisions then made going superior to the guidewire. The depth was measured, next I overdrilled the guidewire and placed the appropriate length screw with short threads. Another guidewire was then placed superior and posterior, steps were repeated to place another screw. Finally a third guidewire was placed anterior to the second wire, using a drill guide. The third guidewire pierced the skin just anterior to the incision line. The skin had to be cut out to get the depth sidra down. I then overdrilled and appropriate screw was placed in standard technique. Final AP and lateral shots were taken and saved, showing good screw placement. Skin incision had extended coming out the small T'ed, making it 5 cm long. The wound was irrigated normal saline, the subcutaneous tissues closed with 2-0 Vicryl sutures, and skin stapled. Sterile dressings were applied. The patient's legs were then taken down and the bottom of the bed was reassembled. His left arm was then placed into a hand table. A tourniquet was placed on his upper arm. The left upper extremity was then prepped and draped in usual fashion. Another timeout was repeated. The patient had a long distal palmar laceration extending at the level of the distal palm flexion crease from the middle of the fifth ray and going across radially towards the index finger MP flexion crease. He also another laceration on the volar aspect of the small finger going distally. Separate laceration on the volar surface of the index finger over the P1 segment. There were also open wounds in the second, third and fourth webspaces. Each U-shaped, measuring approximately 1.5 cm each. The open wounds were copiously irrigated with normal saline. The dense blood clots were washed out. The left upper extremity was then elevated, exsanguinated with an Lasha wrap, and the tourniquet raised pressure 250 mmHg. A sharp debridement was performed along the skin edges, removing approximately 1-2 mm of skin and subcutaneous tissue along the entire length of the wounds. On the most ulnar edge there is a triangle area where the skin appeared necrotic. Approximately 5 mm of skin was cut back. The deep subcutaneous tissue was then also gently debrided and the wounds irrigated once again with normal saline. The deep wound was then explored. The flexor tendons of the long, ring and small fingers were clearly seen with the flexor sheath was violated. The pulleys were noted to be intact. The tendons were noted to be intact. The neurovascular bundles were then each dissected out starting with the common digital nerve proximally and tracing out into the ulnar border of the index finger and into the radial side of the long finger. Next the common digital nerve going to the ulnar side of the long finger and radial side of the ring finger. And finally the common digital nerve going to the ulnar side of the ring finger and radial side of the small finger. The nerves and blood vessels were noted to be intact. Once satisfactory, the tourniquet was deflated. The wound was once again copiously irrigated with normal saline. The skin was then closed with 5-0 nylon vertical mattress and simple sutures. The significant contraction of the distal palmar skin already. The fingers had to be partially flexed in order to get complete closure. After closure, the total length of skin closure measured 20 cm. The patient was injected with 10 mL of 0.5% Marcaine for postop pain control. Sterile bulky dressings were applied. The patient was then transferred to hospital bed where he was extubated and taken to recovery room in stable condition.
--- NOTE | 2018-05-27 22:27 | Anesthesia Evaluation Post Op ---
Date of Encounter: 05/27/18 Time of Encounter: 22:45 - Discharge PostOp Status: Transfer Patient to floor (Patient's vital signs have been reviewed. Patient is stable postoperatively and has adequately recovered from anesthesia. Patient is determined to have stable airway patency and respiratory function including respiratory rate and oxygen saturation. Patient has a stable heart rate, blood pressure and adequate hydration. Patients mental status is acceptable. Patients temperature is appropriate. Pain and nausea are adequately controlled.)
[2018-05-27] MEDS ORDERED: diazePAM 5 MG TABLET PO PRN (22:47)
[2018-05-27] MEDS ORDERED: *HR* OxyCODONE Immed Rel 5 MG TABLET PO PRN (22:47)
[2018-05-27] MEDS ORDERED: *HR* HYDROcodone/Acet 5/325 mg TABLET PO PRN (22:47)
[2018-05-27] MEDS ORDERED: Ibuprofen 400 MG TABLET PO PRN (22:47)
[2018-05-27] MEDS ORDERED: Naloxone 0.4 MG/ML INJ IVP PRN ×2 (22:47)
[2018-05-27] MEDS ORDERED: *HR* Morphine 2 MG/ML SYRINGE IVP PRN (22:47)
[2018-05-28] MEDS: *HR* OxyCODONE Immed Rel 5 MG TABLET PO PRN ×4 (05:00→20:01)
[2018-05-28 07:03] LABS: Hematocrit 34.2 % (37.5-50.1); Hemoglobin 11.4 g/dL (12.9-16.9); Immature Granulocytes % 0.4 % (0-4); Lymphocytes # 0.6 K/mcL (0.6-4.6); Lymphocytes % 7.3 %; Mean Corpuscular HGB Conc 33.3 g/dL (31.6-35.5); Mean Corpuscular Hemoglobin 32.2 pg (28.0-33.3); Mean Corpuscular Volume 96.6 fL (83.0-100.0); Mean Platelet Volume 9.9 fL (9.4-12.4); Monocytes # 0.2 K/mcL (0.0-1.3); Monocytes % 2.6 %; Platelet Count 346 K/mcL (140-400); Red Blood Count 3.54 M/mcL (4.19-5.50); Red Cell Distribution Width 11.8 % (11.5-14.5); Segmented Neutrophils % 89.7 %
[2018-05-28 07:09] LABS: Alanine Aminotransferase 3 Units/L (7-52); Albumin 3.9 g/dL (3.5-5.7); Albumin/Globulin Ratio 1.3 (1.1-2.2); Alkaline Phosphatase 99 Units/L (34-104); Aspartate Amino Transferase 36 Units/L (13-39); BUN/Creatinine Ratio 19 (6-26); Bilirubin,Total 0.3 mg/dL (0.3-1.0); Blood Urea Nitrogen 16 mg/dL (6-20); Calcium 8.9 mg/dL (8.6-10.3); Carbon Dioxide 25 mEq/L (23-29); Chloride 101 mEq/L (98-107); Glucose 159 mg/dL (70-105); Osmolality,Calculated 283 (280-300); Sodium 134 mEq/L (136-145); Total Protein 6.9 g/dL (6.4-8.9); eGFR For Non-African Americans > 60 (> 60)
--- NOTE | 2018-05-28 10:46 | Internal Med Progress Note ---
<Clinton Ludwig - Last Filed: 05/28/18 16:20> Hospitalist Progress Note - Encounter Date of Encounter: 05/28/18 Time of Encounter: 10:46 - Subjective Interval History: Patient received irrigation and debridement of left hand laceration and pinning of left hip fracture yesterday. Procedure went well without complications. Patient is doing well this morning and has no acute complaints, no acute events overnight. Discharge disposition dependent on physical therapy and orthopedic recommendations. Will likely go in the next couple days. - Exam Vitals: Temp Pulse Resp BP Pulse Ox 98.6 F 97 15 137/73 94 05/28/18 10:11 05/28/18 10:11 05/28/18 10:11 05/28/18 10:11 05/28/18 10:11 Exam: Gen: Alert and oriented. No distress H: Normocephalic EENT: Mucus membranes dry Neck: Supple Heart: Regular rate and rhythm. No murmur. Not tachycardic Lungs: Clear bilaterally Abd soft and nontender Ext left hand has clean dry and intact dressing on it with sensation and motor intact in all digits except for second missing sensation Dressing on left hip clean dry and intact with motor and sensation intact in distal extremity, left knee less swollen and tender - Assessment and Plan (1) Left hip pain Current Visit: Yes Status: Acute Assessment and Plan: MRI demonstrated non-displaced fracture of left hip, pinned yesterday with orthopedics Physical therapy evaluation today and tomorrow to evaluate for discharge di sposition (2) Hand laceration Current Visit: Yes Status: Acute Assessment and Plan: Pt with laceration of hand after fall. Day 4 of cefazolin Irrigation and debridement completed by orthopedics yesterday We will inquire about antibiotic needs at discharge (3) DVT prophylaxis Current Visit: Yes Status: Acute Assessment and Plan: Bilateral SCDs on LEs for DVT prophylaxis. (4) Left knee pain Current Visit: Yes Status: Chronic Assessment and Plan: Pt with L knee pain which is chronic. XRay demonstrated arthritis, Ortho recommending TKA PLan to manage outpatient per Ortho Patient received steroid injection by orthopedics yesterday, pain significantly relieved (5) Tobacco abuse Current Visit: Yes Status: Chronic Assessment and Plan: Cessation counselling completed - Time Spent with Patient Total time spent is greater than 50% in coordination of care (as documented) at patient's floor/unit and/or counseling patient: Internal Medicine: Result - Labs CBC & Chem 7: 05/28/18 06:13 05/28/18 06:13 Labs: Short CBC 05/28/18 Range/Units 06:13 WBC 7.8 (4.3-11.1) K/mcL Hgb 11.4 L (12.9-16.9) g/dL Hct 34.2 L (37.5-50.1) % Plt Count 346 (140-400) K/mcL Neutrophils # 7.0 (1.6-8.9) K/mcL BMP 05/28/18 06:13 Sodium 134 L Potassium 4.0 Chloride 101 Carbon Dioxide 25 BUN 16 Creatinine 0.86 Glucose 159 H Calcium 8.9 Liver Function 05/28/18 Range/Units 06:13 Total Bilirubin 0.3 (0.3-1.0) mg/dL AST 36 (13-39) Units/L ALT 3 L (7-52) Units/L Alkaline Phosphatase 99 (34-104) Units/L Albumin 3.9 (3.5-5.7) g/dL - ABG Interpretation ABG results: PT/INR, D-dimer PT 12.1 Seconds (9.4-12.1) 05/24/18 19:09 - Impressions Impressions Fluoroscopy 05/27/18 19:40 IMPRESSION: Intraprocedural fluoroscopic spot images as above. See separate procedure report for more information. D/ / Anil Stahl MD / Anil Stahl MD Interpreting Provider: Anil Stahl MD Hip X-Ray 05/27/18 19:40 IMPRESSION: Intraprocedural fluoroscopic spot images as above. See separate procedure report for more information. D/ / Anil Stahl MD / Anil Stahl MD Interpreting Provider: Anil Stahl MD Consult Discharge Plan - Plan Referrals: NONE,PCP [Primary Care Provider] - <Lor Martinez - Last Filed: 05/28/18 18:13> Hospitalist Progress Note - Encounter Date of Encounter: 05/28/18 - Exam Vitals: Temp Pulse Resp BP Pulse Ox 98.8 F 93 15 130/74 96 05/28/18 16:05 05/28/18 16:05 05/28/18 16:05 05/28/18 16:05 05/28/18 16:05 - Assessment and Plan (1) Left hip pain Current Visit: Yes Status: Acute (2) Hand laceration Current Visit: Yes Status: Acute (3) DVT prophylaxis Current Visit: Yes Status: Acute (4) Left knee pain Current Visit: Yes Status: Chronic (5) Tobacco abuse Current Visit: Yes Status: Chronic - Time Spent with Patient Total time spent is greater than 50% in coordination of care (as documented) at patient's floor/unit and/or counseling patient: Internal Medicine: Result - Labs CBC & Chem 7: 05/28/18 06:13 05/28/18 06:13 Labs: Short CBC 05/28/18 Range/Units 06:13 WBC 7.8 (4.3-11.1) K/mcL Hgb 11.4 L (12.9-16.9) g/dL Hct 34.2 L (37.5-50.1) % Plt Count 346 (140-400) K/mcL Neutrophils # 7.0 (1.6-8.9) K/mcL BMP 05/28/18 06:13 Sodium 134 L Potassium 4.0 Chloride 101 Carbon Dioxide 25 BUN 16 Creatinine 0.86 Glucose 159 H Calcium 8.9 Liver Function 05/28/18 Range/Units 06:13 Total Bilirubin 0.3 (0.3-1.0) mg/dL AST 36 (13-39) Units/L ALT 3 L (7-52) Units/L Alkaline Phosphatase 99 (34-104) Units/L Albumin 3.9 (3.5-5.7) g/dL - ABG Interpretation ABG results: PT/INR, D-dimer PT 12.1 Seconds (9.4-12.1) 05/24/18 19:09 - Impressions Impressions Fluoroscopy 05/27/18 19:40 IMPRESSION: Intraprocedural fluoroscopic spot images as above. See separate procedure report for more information. D/ / Anil Stahl MD / Anil Stahl MD Interpreting Provider: Anil Stahl MD Hip X-Ray 05/27/18 19:40 IMPRESSION: Intraprocedural fluoroscopic spot images as above. See separate procedure report for more information. D/ / Anil Stahl MD / Anil Stahl MD Interpreting Provider: Anil Stahl MD - Attending Attestation I examined this patient and my medical decision-making was reviewed with the Resident Physician Dr Ludwig. I agree with the documented findings, disposition and treatment plan as described except to the extent set forth below. Mr Soto is currently in observation for L hip fracture and L hand laceration. awake, pain well controlled on current regimen, + flatus, no bm, eating and drinkgin and urinating without difficulty. deneis fevers or chills. has no sensation to left pointer finger. gen- alert, awake,appears stated age cv- reg rate and rhythm, normal s1,s2, no murmurs appreciated, no le edema lungs- ctabl, no wheezing, rhonchi or crackles, normal resp effort skin- left hand dressing intact neuro- AAOx3, sensation to light touch diminished in distal portion of left 2nd digt when compared to other digits that hand acute L hip fracture - s/p Left hip percutaneous pinning, ortho following Left Hand Laceration - s/p Left hand irrigation and debridement of open palmar wound, expiration wound with neurolysis of digital nerves, repair of skin lacerations and distal palm and into index long and ring fingers, ortho following, will discuss further need for abx, received tdap in ED L knee pain- XR with questionable prox fibular fracture vs artifact, + metabolic bone disease/ostenpenia- has been reviewed by ortho, s/p joint injection while in OR and fu with Dr Rico outpt to discuss TKR Further diagnoses and plan as documented by resident <Clinton Ludwig - Last Filed: 05/28/18 16:20> (2) Hand laceration Qualifiers: Encounter type: subsequent encounter Foreign body presence: without foreign body Laterality: left Qualified Code(s): S61.412D - Laceration without foreign body of left hand, subsequent encounter (4) Left knee pain Qualifiers: Chronicity: chronic Qualified Code(s): M25.562 - Pain in left knee; G89.29 - Other chronic pain <Lor Martinez M - Last Filed: 05/28/18 18:13> (2) Hand laceration Qualifiers: Encounter type: subsequent encounter Foreign body presence: without foreign body Laterality: left Qualified Code(s): S61.412D - Laceration without foreign body of left hand, subsequent encounter (4) Left knee pain Qualifiers: Chronicity: chronic Qualified Code(s): M25.562 - Pain in left knee; G89.29 - Other chronic pain
--- NOTE | 2018-05-28 13:21 | Orthopedics Progress Note ---
Date of Encounter: 05/29/18 Time of Encounter: 12:45 - Assessment and Plan (1) Hand laceration Current Visit: Yes Status: Acute S/P - Left hand irrigation and debridement of open palmar wound, expiration wound with neurolysis of digital nerves, repair of skin lacerations and distal palm and into index long and ring fingers 05/27/18 Leave dressings to left hand intact until follow up in office at [facility]1 next week. Continue to elevate and ice as needed. Do not fully extend the fingers all the way so as to decrease tension on the incision. Ok to flex fingers NWB to left hand Recommend use of platform walker due to TTWB status for left hip fracture. Will follow up with Andie Randall PA-C in [facility] office in 1 week. Qualifiers: Encounter type: subsequent encounter Foreign body presence: without foreign body Laterality: left Qualified Code(s): S61.412D - Laceration without foreign body of left hand, subsequent encounter (2) Left hip pain Current Visit: Yes Status: Acute S/P - Left hip percutaneous pinning 05/27/18 Continue with therapy. TTWB. Patient admittedly walked full weight bearing a little around the room this morning before therapy before knowing he was TTWB and states it felt great at the time with minimal pain. He worked with therapy this morning and only used one crutch. I discussed with the patient that a safer option would be to use a platform walker, recommend switching to that at this time and patient agreeable to this. Discussed this option with physical therapist as well and in agreement. Leave dressings to left hip in place until follow up in office next week. Continue to ice as needed. DVT prophylaxis - lovenox x 2 weeks then aspirin 325mg x 4 weeks (3) Left knee pain Current Visit: Yes Status: Chronic s/p Left knee intra-articular steroid injection while intraop 05/27/18 Progress knee motion as tolerated. Encouraged continued motion to prevent stiffness while being TTWB due to hip fracture. Discussed that he would be a TKR candidate with consultation to Dr. Rico in a few months once the hip fracture is healed and patient expressed understanding. Qualifiers: Chronicity: chronic Qualified Code(s): M25.562 - Pain in left knee; G89.29 - Other chronic pain Subjective Principal diagnosis: left hand laceration, left hip fracture Interval history: POD#1 - Patient feeling much better today. States pain has much improved today and has been well tolerable with medication but meds are just starting to wear off now. He admits to getting up and walking this morning on own before therapy and bearing weight on left leg with minimal pain. States he did not know he was to be TTWB. No events overnight. Objective Vital signs: Vital Signs Temp Pulse Resp BP Pulse Ox 05/28/18 10:11 98.6 F 97 15 137/73 94 05/28/18 07:23 98.1 F 81 15 128/72 96 05/28/18 02:58 97.5 F L 88 14 112/67 92 05/28/18 01:02 97.6 F 84 14 116/64 93 05/27/18 23:56 97.4 F L 82 14 115/72 93 05/27/18 23:30 97.5 F L 83 16 110/70 94 05/27/18 23:00 97.7 F 89 16 133/68 92 05/27/18 22:45 98.6 F 94 16 116/69 95 05/27/18 22:35 97 16 117/71 94 05/27/18 22:25 97 16 108/64 95 05/27/18 22:15 97.5 F L 94 16 113/68 94 05/27/18 18:45 98.7 F 83 17 144/74 96 05/27/18 16:01 97.7 F 76 17 131/84 96 Intake and Output 05/27/18 05/28/18 05/28/18 23:59 07:59 15:59 Intake Total 200 / 200 100 / 100 300 / 300 Output Total 775 / 775 1999 Balance -575 / -575 -1900 / -1900 300 / 300 Intake: IV Fluids 200 / 200 100 / 100 100 / 100 Ofirmev 1,000 mg/100 ml 1,000 100 / 100 mg In 100 ml @ 400 mls/hr IVPB ONCE ONE Rx#:[id number] Ancef 2,000 MG In 0.9 % Sodium 100 / 100 100 / 100 100 / 100 Chloride 100 ML @ 200 mls/hr IVPB Q8HR FRANCISCO Rx#:[id number] Oral 200 / 200 Output: Urine 750 / 750 1999 Estimated Blood Loss 25 / 25 Other: Weight 99.2 kg Incision: clean and dry (dressings to left hand and left hip are c/d/i with no visible drainage or surrounding erythema. intact sensation distally to left fingers and toes. no calf tenderness to palpation.good dorsiflexion of left foot. ) - Labs CBC & BMP: 05/28/18 06:13 05/28/18 06:13 Labs: Abnormal lab results RBC 3.54 M/mcL (4.19-5.50) L 05/28/18 06:13 Hgb 11.4 g/dL (12.9-16.9) L 05/28/18 06:13 Hct 34.2 % (37.5-50.1) L 05/28/18 06:13 Sodium 134 mEq/L (136-145) L 05/28/18 06:13 Glucose 159 mg/dL (70-105) H 05/28/18 06:13 ALT 3 Units/L (7-52) L 05/28/18 06:13 Triglycerides 220 mg/dL (< 150) H 05/25/18 05:36 VLDL Cholesterol, Calc 44 mg/dL (< 31) H 05/25/18 05:36 HDL Cholesterol 27 mg/dL (40-59) L 05/25/18 05:36 Cholesterol/HDL Ratio 6.1 (0-4.9) H 05/25/18 05:36 Consult Discharge Plan - Plan Referrals: NONE,PCP [Primary Care Provider] -
[2018-05-28] MEDS: *HR* Enoxaparin 30 MG/0.3 ML SYRINGE SQ SCH (21:58)
[2018-05-29] MEDS: *HR* OxyCODONE Immed Rel 5 MG TABLET PO PRN ×3 (06:36→15:43)
[2018-05-29] MEDS: *HR* Enoxaparin 30 MG/0.3 ML SYRINGE SQ SCH (06:37)
--- NOTE | 2018-05-29 10:08 | Discharge Summary ---
<OzielClinton Desai - Last Filed: 05/29/18 11:22> - NOTES TO OUTPATIENT PROVIDER Notes to Outpatient Provider: Mr Soto was admitted for left hand laceration and left hip and knee pain after a fall. Imaging revealed no displaced left femoral neck fracture. He was taken to OR by Orthopedics for left hand explo ratory irrigation and debridement and repair, and left hip pinning. He tolerated the procedure well. He had 2 days of post-surgical care and physical therapy asessement. He will be discharged home in stable condition with pain control, lovenox, and outpatient phsycial therapy referral. Date of Encounter: 05/29/18 Time of Encounter: 10:06 - Discharge Diagnosis (1) Hand laceration Priority: Primary Status: Acute Assessment and Plan: Pt with laceration of hand after fall. Day 5 of IV cefazolin, orhtopedics did not recommend continued abx at discharge Irrigation and debridement completed by orthopedics Patient tolerated procedure well Sensation, motor, pulses intact in all five digits of left hand Stable for discharge with outpatient Orthopedic follow up Qualifiers: Encounter type: subsequent encounter Foreign body presence: without foreign body Laterality: left Qualified Code(s): S61.412D - Laceration without foreign body of left hand, subsequent encounter (2) Left hip pain Priority: Primary Status: Acute Assessment and Plan: MRI demonstrated non-displaced fracture of left hip, pinned by orthopedics Tolerated procedure well, no signs of bleeding or hematoma ,pain controlled Physical therapy evaluation recommended discharge home with outpatient physical therapy (3) Left knee pain Priority: Secondary Status: Chronic Assessment and Plan: Pt with L knee pain which is chronic. XRay demonstrated arthritis, Ortho recommending TKA Plan to manage outpatient per Ortho Patient received steroid injection by orthopedics, pain significantly relieved Qualifiers: Chronicity: chronic Qualified Code(s): M25.562 - Pain in left knee; G89.29 - Other chronic pain (4) DVT prophylaxis Priority: Secondary Status: Acute Assessment and Plan: Bilateral SCDs on LEs for DVT prophylaxis, lovenox sq during hospital course Will send home with 2 week course of lovenox, transition to 4 weeks ASA (5) Tobacco abuse Priority: Secondary Status: Chronic Assessment and Plan: Cessation counselling completed Hospital course: Mr. Soto is a 48 year old male with no significant past medical history or home medications who presented to [facility] ED after a fall. He sustained a severe laceration to his left hand and blunt trauma to his left knee and hip. He was admitted on medicine service and Orthopedics was consulted. IV cefazolin was initiated. He was assessed by Orthopedics, MRI of hip identified left femoral neck fracture, left knee xray demonstrated significant osteoarthritis. Orthopedics recommended left hand irrigation and debridement and repair, left hip fixation, left knee steroid injection with outpatient discussion for TKA. He was taken to OR for left hand I&D, left hip pinning, left knee injection. He tolerated the procedure well. He received 2 days post surgical care and physical therapy assessment. PT recommended discharge home with outpatient PT. He was discharged in stable medical condition with 5 days [place], 2 weeks Lovenox, transition to 4 weeks aspirin. Discharge discussed with: patient, nurse, networks computer consultant - Time Spent with Patient Total time spent providing and/or coordinating discharge services: - Discharge Medications Prescriptions: Aspirin 325 mg PO DAILY 30 Days #30 tablet Enoxaparin Sodium 30 mg SQ Q12H 14 Days #3 vial HYDROcodone/Acet 5/325 mg [Highland 5-325 mg] 1 tab PO Q6H PRN 5 Days #20 tablet PRN Reason: Moderate Pain Home Medications: Aspirin 325 mg PO DAILY 30 Days #30 tablet 05/29/18 [Rx] Enoxaparin Sodium 30 mg SQ Q12H 14 Days #3 vial 05/29/18 [Rx] HYDROcodone/Acet 5/325 mg [[place]land 5-325 mg] 1 tab PO Q6H PRN 5 Days #20 tablet 05/29/18 [Rx] Allergies/Adverse Reactions: Allergy/AdvReac Type Severity Reaction Status Date / Time No Known Allergies Allergy Verified 05/25/18 16:06 Date of admission: 05/27/18 12:03 Primary care physician: PCP NONE Consults: 05/24/18 18:54 Consult to Orthopedic Surgery [CONS] Stat Consulting Provider: [facility] Reason for Consult: L hip pain, unable to ambulate, Hand lac Call Completed: Yes 05/24/18 22:30 Consult to Blood Bank Coordinator [CONS] Routine Reason for SW Consult: Assess patient for possible home needs for post- discharge planning. 05/24/18 22:31 Consult to Occupational Therapy [CONS] Routine Comment: Evaluate, develop and implement POC Reason for Consult: Patient has injured left hip, recently broke left leg, and has difficulty with ambulation currently after sustaining fall today. Please assess patient for ambulation safety, strength, stability, and possible home assistive/rehabilitation needs for post-discharge planning. Does patient have active BEDREST order?: Yes Is patient medically & hemodynamically stable?: Yes Patient assessed for mobility or mobilized this visit?: No 05/24/18 22:33 Consult to Physical Therapy [CONS] Routine Comment: Evaluate, develop and implement POC Reason for Consult: Patient has injured left hip, recently broke left leg, and has difficulty with ambulation currently after sustaining fall today. Please assess patient for ambulation safety, strength, stability, and possible home assistive/rehabilitation needs for post-discharge planning. Does patient have active BEDREST order?: Yes Is patient medically & hemodynamically stable?: Yes Patient assessed for mobility or mobilized this visit?: No 05/24/18 22:36 Consult to Wound Care [CONS] Routine Reason for Consult: Patient fell today and sustained wound to left hand. Received three stitches in the hand but will most likely require more. Please assess and make recommendations for daily wound care. Call Completed: No 05/27/18 22:47 Consult to Orthopedic Navigator [CONS] [CONS] Routine Consult to Physical Therapy [CONS] Routine Comment: Evaluate, develop and implement POC Reason for Consult: post hip surgery Does patient have active BEDREST order?: No Is patient medically & hemodynamically stable?: Yes Patient assessed for mobility or mobilized this visit?: No Consult to Blood Bank Coordinator [CONS] Routine Reason for SW Consult: post -op hip fracture RT Post Op Consult [CONS] Routine Discharging clinician: Clinton Ludwig Anticipated date of discharge: 05/29/18 - Constitutional Vitals: Temp Pulse Resp BP Pulse Ox 98.4 F 79 16 129/80 97 05/29/18 06:39 05/29/18 06:39 05/29/18 06:39 05/29/18 06:39 05/29/18 06:39 General appearance: Present: cooperative, A&O X 3, pleasant, severe distress (Left hip pain), answers questions appropriately Exam: Gen: Alert and oriented. No distress H: Normocephalic EENT: Mucus membranes dry Neck: Supple Heart: Regular rate and rhythm. No murmur. Not tachycardic Lungs: Clear bilaterally Abd soft and nontender Ext left hand has clean dry and intact dressing and gutierrez wrap on it with sensation/pulses/motor intact in all digits Dressing on left hip clean dry and intact with motor and sensation intact in distal extremity, left knee less swollen and tender - Patient Status Disposition: Home, Self-Care Condition: Good Overall status at discharge: patient is progressing back to baseline - Discharge Instructions Follow Up With: NONE,PCP [Primary Care Provider] - Andie Randall, PAC [Physician Shipping Clerk [employer]] - Additional Instructions: Leave dressings to left hand intact until follow up in office next week. Continue to elevate and ice as needed. Do not fully extend the fingers all the way so as to decrease tension on the incision. Ok to flex fingers Non weight bearing to left hand Recommend use of platform walker due to toe touch weight bearing status for left hip fracture. Leave dressings to left hip in place until follow up in office next week. Continue to ice as needed. Toe touch weight bearing status until seen in office and receive further instruction blood clot prevention - lovenox injection twice daily x 2 weeks then stop and take aspirin 325mg x 4 weeks Progress knee motion as tolerated. Encouraged continued motion to prevent stiffness while being toe touch weight bearing status due to hip fracture. Follow up with Dr. Rico in a few months once the hip fracture is healed to discuss knee replacement Will follow up with Andie Randall PA-C in [facility] office in 1 week. Schedule your outpatient physical therapy as discussed - Diet and Activity Activity: as per physical therapy Diet: advance to your usual diet <Lor Martinez - Last Filed: 05/29/18 13:01> Date of Encounter: 05/29/18 - Discharge Diagnosis (1) Left hip pain Status: Acute (2) Hand laceration Status: Acute Qualifiers: Encounter type: subsequent encounter Foreign body presence: without foreign body Laterality: left Qualified Code(s): S61.412D - Laceration without foreign body of left hand, subsequent encounter (3) DVT prophylaxis Status: Acute (4) Left knee pain Status: Chronic Qualifiers: Chronicity: chronic Qualified Code(s): M25.562 - Pain in left knee; G89.29 - Other chronic pain (5) Tobacco abuse Status: Chronic Hospital course: Mr. Soto is a 48 year old male - Time Spent with Patient Total time spent providing and/or coordinating discharge services: Greater than 30 minutes (40 min) Date of admission: 05/27/18 12:03 Primary care physician: PCP NONE Consults: 05/24/18 18:54 Consult to Orthopedic Surgery [CONS] Stat Consulting Provider: [facility] Reason for Consult: L hip pain, unable to ambulate, Hand lac Call Completed: Yes 05/24/18 22:30 Consult to Blood Bank Coordinator [CONS] Routine Reason for SW Consult: Assess patient for possible home needs for post- discharge planning. 05/24/18 22:31 Consult to Occupational Therapy [CONS] Routine Comment: Evaluate, develop and implement POC Reason for Consult: Patient has injured left hip, recently broke left leg, and has difficulty with ambulation currently after sustaining fall today. Please assess patient for ambulation safety, strength, stability, and possible home assistive/rehabilitation needs for post-discharge planning. Does patient have active BEDREST order?: Yes Is patient medically & hemodynamically stable?: Yes Patient assessed for mobility or mobilized this visit?: No 05/24/18 22:33 Consult to Physical Therapy [CONS] Routine Comment: Evaluate, develop and implement POC Reason for Consult: Patient has injured left hip, recently broke left leg, and has difficulty with ambulation currently after sustaining fall today. Please assess patient for ambulation safety, strength, stability, and possible home assistive/rehabilitation needs for post-discharge planning. Does patient have active BEDREST order?: Yes Is patient medically & hemodynamically stable?: Yes Patient assessed for mobility or mobilized this visit?: No 05/24/18 22:36 Consult to Wound Care [CONS] Routine Reason for Consult: Patient fell today and sustained wound to left hand. Received three stitches in the hand but will most likely require more. Please assess and make recommendations for daily wound care. Call Completed: No 05/27/18 22:47 Consult to Orthopedic Navigator [CONS] [CONS] Routine Consult to Physical Therapy [CONS] Routine Comment: Evaluate, develop and implement POC Reason for Consult: post hip surgery Does patient have active BEDREST order?: No Is patient medically & hemodynamically stable?: Yes Patient assessed for mobility or mobilized this visit?: No Consult to Blood Bank Coordinator [CONS] Routine Reason for SW Consult: post -op hip fracture RT Post Op Consult [CONS] Routine - Constitutional Vitals: Temp Pulse Resp BP Pulse Ox 98.4 F 71 16 127/76 97 05/29/18 06:39 05/29/18 11:06 05/29/18 11:06 05/29/18 11:06 05/29/18 11:06 - Diet and Activity Activity: other (toe touch weight bearing status left hip) - Attending Attestation I examined this patient and my medical decision-making was reviewed with the Resident Physician Dr Ludwig. I agree with the documented findings, disposition and treatment plan as described except to the extent set forth below. Mr Soto was admitted for L hip fracture and L hand laceration. He has had an uncomplicated post op course and is discharging to home in stable condition with outpt follow up awake, pain well controlled , up with walker. + flatus, eating and drinking and urinating without difficulty. rom left hand improving, sensation has returned to his normal in left hand. knee pain improved greatly gen- alert, awake,appears stated age cv- reg rate and rhythm, normal s1,s2, no murmurs appreciated, no le edema lungs- ctabl, no wheezing, rhonchi or crackles, normal resp effort on ra skin- left hand dressing intact, clean dry, left hip dressing clean, dry, intact, no ecchymosis or palpable hematoma neuro- AAOx3, sensation to light intact and equal in all fingers acute L hip fracture - s/p Left hip percutaneous pinning, ortho outpt fu, activity as per ortho, outpt pt, vte ppx as per ortho Left Hand Laceration - s/p Left hand irrigation and debridement of open palmar wound, expiration wound with neurolysis of digital nerves, repair of skin lacerations and distal palm and into index long and ring fingers, ortho will see outpt, ortho does not see need for cont abx as per discussion with our team, received tdap in ED L knee pain- XR with questionable prox fibular fracture vs artifact, + metabolic bone disease/osteopenia- has been reviewed by ortho, s/p joint injection while in OR and fu with Dr Rico outpt to discuss TKR Further diagnoses and plan as documented by resident
[2018-05-29 11:07] VITALS: BP 127/76
== END 2018-05-29 17:18 | disposition home or self-care (01) | DRG 482 ==
LOC: EMEROOARM 13:55 → 3NENU 13:55 → SUATTDRO 19:58 → 3NENU 21:04
PROVIDERS: ADMIT Internal Medicine; ATTEND Internal Medicine

== ENCOUNTER 2019-10-28 09:59 | Inpatient (IN) ==
[2019-10-28] MEDS ORDERED: *HR* HYDROmorphone (PF) 1 MG/ML SYRINGE IVP PRN (10:20)
[2019-10-28] MEDS ORDERED: *HR* Promethazine 25 MG/ML VIAL IVP PRN ×2 (10:20→14:43)
[2019-10-28] MEDS ORDERED: Ondansetron 4 MG/2 ML VIAL IVP PRN ×2 (10:20→14:43)
[2019-10-28] MEDS ORDERED: *HR* Labetalol 20 MG/4 ML SYRINGE IVP PRN (10:20)
[2019-10-28] MEDS ORDERED: CeFAZolin Syr 2,000MG/20 ML 2,000 MG/20 ML SYRINGE IVPB ONE (10:31)
[2019-10-28] MEDS ORDERED: *HR* FentaNYL (PF) 100 MCG/2 ML VIAL ONE (10:40)
[2019-10-28] MEDS ORDERED: *HR* Propofol 200 MG/20 ML VIAL IVP ONE ×3 (10:40→13:05)
[2019-10-28] MEDS ORDERED: *HR* Midazolam HCl 2 MG/2 ML VIAL ONE (10:40)
[2019-10-28] MEDS ORDERED: Lidocaine -MPF 2% 2 ML VIAL ONE ×2 (10:41→11:47)
[2019-10-28] MEDS ORDERED: Dexamethasone 4 MG/ML VIAL ONE (10:41)
[2019-10-28] MEDS ORDERED: Ondansetron 4 MG/2 ML VIAL ONE (10:41)
[2019-10-28] MEDS ORDERED: *HR* Succinylcholine 200 MG/10 ML VIAL IVP ONE (10:42)
[2019-10-28] MEDS ORDERED: Lidocaine HCL 4 ML Topical Solution (Laryng-O-Jet Kit Sterile Pak) TP ONE (10:42)
[2019-10-28] MEDS ORDERED: Ringers Solution, Lactated 1,000 ML IVC SCH ×2 (10:45→14:43)
[2019-10-28 10:57] LABS: Basophils % 0.2 %; Eosinophils # 0.1 K/mcL (0.0-0.6); Eosinophils % 1.7 %; Hematocrit 38.7 % (37.5-50.1); Immature Granulocytes % 0.3 % (0-4); Lymphocytes # 1.4 K/mcL (0.6-4.6); Lymphocytes % 22.5 %; Mean Corpuscular HGB Conc 33.6 g/dL (31.6-35.5); Mean Corpuscular Hemoglobin 33.8 pg (28.0-33.3); Mean Corpuscular Volume 100.5 fL (83.0-100.0); Mean Platelet Volume 9.3 fL (9.4-12.4); Monocytes # 0.3 K/mcL (0.0-1.3); Monocytes % 4.8 %; Neutrophils # 4.5 K/mcL (1.6-8.9); Platelet Count 416 K/mcL (140-400); Red Blood Count 3.85 M/mcL (4.19-5.50); Red Cell Distribution Width 12.5 % (11.5-14.5); Segmented Neutrophils % 70.5 %; White Blood Count 6.4 K/mcL (4.3-11.1)
[2019-10-28] MEDS ORDERED: ROPIVACAINE/PF/NS 0.25% 1 EACH SYRINGE INTRAART ONE (11:04)
[2019-10-28] MEDS ORDERED: Lidocaine -MPF 1% 5 ML AMPUL ONE (11:04)
[2019-10-28 11:11] LABS: BUN/Creatinine Ratio 14 (6-26); Blood Urea Nitrogen 13 mg/dL (6-20); Calcium 9.1 mg/dL (8.6-10.3); Carbon Dioxide 16 mEq/L (23-29); Chloride 108 mEq/L (98-107); Glucose 102 mg/dL (70-105); Osmolality,Calculated 280 (280-300); Potassium 3.6 mEq/L (3.5-5.1); Sodium 135 mEq/L (136-145); eGFR For African Americans > 60 (> 60); eGFR For Non-African Americans > 60 (> 60)
[2019-10-28] MEDS ORDERED: Tranexamic Acid 1,000 MG/10 ML VIAL ONE (11:47)
[2019-10-28] MEDS ORDERED: Vancomycin 2,000 MG/520 ML IV.SOLN IVPB ONE (11:53)
[2019-10-28] MEDS ORDERED: *HR* PHENYLEPHRINE 1,000 MCG/10 ML SYRINGE IVP ONE ×2 (11:56→12:46)
[2019-10-28] MEDS ORDERED: *HR* HYDROMORPHONE 2 MG/ML VIAL ONE (13:27)
[2019-10-28] MEDS ORDERED: MOM Conc 10 ML UD.LIQ PO PRN (14:43)
[2019-10-28] MEDS ORDERED: Ibuprofen 600 MG TABLET PO PRN (14:43)
[2019-10-28] MEDS ORDERED: Dextrose Gel 15 GM/37.5 ML TUBE PO PRN ×2 (14:43)
[2019-10-28] MEDS ORDERED: HYDROcodone BIT/Homatropine 5 MG TABLET PO PRN (14:43)
[2019-10-28] MEDS ORDERED: D5% in Water 1,000 ML IVC PRN (14:43)
[2019-10-28] MEDS ORDERED: *HR* Dextrose 50 % in Water (Syg) 50 ML SYRINGE IVP PRN (14:43)
[2019-10-28] MEDS ORDERED: Sennosides 8.6 MG TABLET PO PRN (14:43)
[2019-10-28] MEDS ORDERED: Naloxone 0.4 MG/ML INJ IVP PRN (14:43)
[2019-10-28 15:15] LABS: Hematocrit 32.9 % (37.5-50.1); Hemoglobin 10.7 g/dL (12.9-16.9)
[2019-10-28] MEDS: Ascorbic Acid 500 MG TABLET PO SCH (16:36)
[2019-10-28] MEDS: *HR* Enoxaparin 30 MG/0.3 ML SYRINGE SQ SCH (16:38)
[2019-10-28] MEDS: Insulin LISPRO 300 UNITS/3 ML VIAL SQ SCH (16:38)
[2019-10-28] MEDS ORDERED: *HR* Enoxaparin 30 MG/0.3 ML SYRINGE SQ SCH (18:00)
[2019-10-28] MEDS: *HR* OxyCODONE Immed Rel 5 MG TABLET PO PRN ×2 (19:39→23:39)
[2019-10-28] MEDS: ceFAZolin 2,000 MG in 0.9 % Sodium Chloride 100 ML IVPB SCH (19:42)
[2019-10-28] MEDS ORDERED: Insulin LISPRO 300 UNITS/3 ML VIAL SQ SCH (21:00)
[2019-10-29] MEDS: ceFAZolin 2,000 MG in 0.9 % Sodium Chloride 100 ML IVPB SCH (03:00)
[2019-10-29] MEDS: *HR* OxyCODONE Immed Rel 5 MG TABLET PO PRN ×4 (03:53→17:11)
[2019-10-29] MEDS: *HR* Enoxaparin 30 MG/0.3 ML SYRINGE SQ SCH (05:00)
[2019-10-29 05:28] LABS: Hematocrit 29.4 % (37.5-50.1); Immature Granulocytes % 0.4 % (0-4); Lymphocytes % 10.1 %; Mean Corpuscular Hemoglobin 34.7 pg (28.0-33.3); Mean Corpuscular Volume 102.1 fL (83.0-100.0); Mean Platelet Volume 9.8 fL (9.4-12.4); Monocytes # 0.6 K/mcL (0.0-1.3); Monocytes % 6.1 %; Neutrophils # 8.6 K/mcL (1.6-8.9); Platelet Count 354 K/mcL (140-400); Red Blood Count 2.88 M/mcL (4.19-5.50); Red Cell Distribution Width 12.6 % (11.5-14.5); Segmented Neutrophils % 83.4 %
[2019-10-29 05:46] LABS: BUN/Creatinine Ratio 13 (6-26); Blood Urea Nitrogen 11 mg/dL (6-20); Calcium 8.5 mg/dL (8.6-10.3); Carbon Dioxide 19 mEq/L (23-29); Chloride 108 mEq/L (98-107); Glucose 121 mg/dL (70-105); Osmolality,Calculated 281 (280-300); Sodium 135 mEq/L (136-145); eGFR For African Americans > 60 (> 60); eGFR For Non-African Americans > 60 (> 60)
[2019-10-29 05:50] LABS: White Blood Count 10.3 K/mcL (4.3-11.1)
[2019-10-29] MEDS: Insulin LISPRO 300 UNITS/3 ML VIAL SQ SCH ×2 (07:39→12:31)
[2019-10-29] MEDS: Ascorbic Acid 500 MG TABLET PO SCH (08:25)
[2019-10-29] MEDS ORDERED: Multivit/Ca/Min/Fe/FA 1 TAB TABLET PO SCH (09:00)
[2019-10-29 15:32] VITALS: BP 100/64
== END 2019-10-29 17:49 | disposition home health service (06) | DRG 470 ==
LOC: SAMDAY 09:59 → 3NENU 14:31
PROVIDERS: ADMIT Orthopaedic Surgery; ATTEND Orthopaedic Surgery

== ENCOUNTER 2021-01-15 09:15 | Inpatient (IN) ==
[2021-01-15] MEDS ORDERED: 0.9 % Sodium Chloride 1,000 ML IVC ONE ×2 (09:34→17:29)
[2021-01-15 09:47] LABS: Bacteria,Urine Few per hpf (None-Few); Bilirubin,Urine Negative (Negative); Blood,Urine Trace (Negative); Clarity,Urine Turbid (Clear); Color,Urine Yellow (Yellow); Glucose,Urine (UA) Normal (Normal); Ketones,Urine Negative (Negative); Leukocyte Esterase,Urine Large (Negative); Mucus,Urine Few per lpf (None-Few); Nitrite,Urine Negative (Negative); PH,Urine 6.5 pH Units (5.0-8.0); Protein,Urine 70 mg/dL (Neg-Trace); Squamous Epithelial Cell,Urine Few per hpf (None-Few); Urobilinogen,Urine Normal (Normal); WBC,Urine 50-100 per hpf (0-3)
[2021-01-15 09:58] LABS: Basophils % 0.2 %; Eosinophils % 0.4 %; Hematocrit 31.2 % (37.5-50.1); Hemoglobin 10.8 g/dL (12.9-16.9); Immature Granulocytes % 0.6 % (0-4); Lymphocytes # 0.6 K/mcL (0.6-4.6); Lymphocytes % 6.8 %; Mean Corpuscular HGB Conc 34.6 g/dL (31.6-35.5); Mean Corpuscular Hemoglobin 34.6 pg (28.0-33.3); Mean Platelet Volume 9.2 fL (9.4-12.4); Monocytes # 0.6 K/mcL (0.0-1.3); Monocytes % 6.3 %; Neutrophils # 7.7 K/mcL (1.6-8.9); Platelet Count 418 K/mcL (140-400); Red Blood Count 3.12 M/mcL (4.19-5.50); Red Cell Distribution Width 12.7 % (11.5-14.5); Segmented Neutrophils % 85.7 %
[2021-01-15] MEDS: cefTRIAXone 1,000 MG in Water for inj. (sterile) 10 ML IVP ONE (10:01)
[2021-01-15 10:17] LABS: Alanine Aminotransferase 21 Units/L (7-52); Albumin 3.8 g/dL (3.5-5.7); Albumin/Globulin Ratio 0.8 (1.1-2.2); Alkaline Phosphatase 298 Units/L (34-104); Aspartate Amino Transferase 21 Units/L (13-39); Bilirubin,Total 0.5 mg/dL (0.3-1.0); Blood Urea Nitrogen 15 mg/dL (6-20); Calcium 9.3 mg/dL (8.6-10.3); Carbon Dioxide 18 mEq/L (23-29); Chloride 96 mEq/L (98-107); Globulin 4.8 g/dL (2.4-3.5); Glucose 111 mg/dL (70-105); Lipase 108 Units/L (11-82); Osmolality,Calculated 270 (280-300); Sodium 129 mEq/L (136-145); Total Protein 8.6 g/dL (6.4-8.9)
[2021-01-15 10:53] LABS: Adenovirus Not Detected (Not Detect); Bordetella Pertussis Not Detected (Not Detect); Chlamydophila pneumoniae Not Detected (Not Detect); Coronavirus 229E Not Detected (Not Detect); Coronavirus HKU1 Not Detected (Not Detect); Coronavirus NL63 Not Detected (Not Detect); Coronavirus OC43 Not Detected (Not Detect); Human Metapneumovirus Not Detected (Not Detect); Human Rhinovirus/Enterovirus Not Detected (Not Detect); Influenza A Subtype 2009 H1 Not Detected (Not Detect); Influenza B Not Detected (Not Detect); Mycoplasma pneumoniae Not Detected (Not Detect); Parainfluenza Virus 1 Not Detected (Not Detect); Parainfluenza Virus 2 Not Detected (Not Detect); Parainfluenza Virus 3 Not Detected (Not Detect); Parainfluenza Virus 4 Not Detected (Not Detect); Respiratory Syncytial Virus Not Detected (Not Detect); SARS-CoV-2 Not Detected (Not Detect)
[2021-01-15 11:26] LABS: BUN/Creatinine Ratio 11 (6-26); eGFR For African Americans > 60 (> 60); eGFR For Non-African Americans 56 (> 60)
[2021-01-15] MEDS ORDERED: *HR* HYDROcodone/Acet 5/325 mg TABLET PO ONE (11:46)
[2021-01-15] MEDS ORDERED: Potassium Effervescent 25 MEQ TABLET.EFF PO ONE (11:46)
[2021-01-15] MEDS ORDERED: Naloxone 0.4 MG/ML INJ IVP PRN (14:37)
[2021-01-15] MEDS ORDERED: Ondansetron 4 MG/2 ML VIAL IVP PRN (14:42)
[2021-01-15] MEDS: Acetaminophen 325 MG TABLET PO PRN (16:01)
[2021-01-15] MEDS ORDERED: 0.9 % Sodium Chloride 1,000 ML IVC SCH (17:30)
[2021-01-15] MEDS: *HR* HYDROcodone/Acet 5/325 mg TABLET PO PRN (20:00)
[2021-01-15] MEDS ORDERED: Acetaminophen IV 1,000 MG/100 ML BAG IVPB ONE (20:12)
[2021-01-16 02:04] LABS: Basophils % 0.3 %; Eosinophils % 0.3 %; Immature Granulocytes % 0.6 % (0-4); Lymphocytes # 0.9 K/mcL (0.6-4.6); Lymphocytes % 13.6 %; Mean Corpuscular HGB Conc 33.7 g/dL (31.6-35.5); Mean Corpuscular Hemoglobin 34.3 pg (28.0-33.3); Mean Corpuscular Volume 101.9 fL (83.0-100.0); Mean Platelet Volume 9.6 fL (9.4-12.4); Monocytes # 0.7 K/mcL (0.0-1.3); Neutrophils # 4.6 K/mcL (1.6-8.9); Platelet Count 364 K/mcL (140-400); Red Blood Count 2.65 M/mcL (4.19-5.50); Red Cell Distribution Width 12.9 % (11.5-14.5); Segmented Neutrophils % 74.2 %; White Blood Count 6.3 K/mcL (4.3-11.1)
[2021-01-16 02:06] LABS: Hemoglobin 9.1 g/dL (12.9-16.9)
[2021-01-16 02:16] LABS: BUN/Creatinine Ratio 11 (6-26); Blood Urea Nitrogen 12 mg/dL (6-20); Carbon Dioxide 17 mEq/L (23-29); Chloride 100 mEq/L (98-107); Glucose 151 mg/dL (70-105); Lipase 139 Units/L (11-82); Osmolality,Calculated 273 (280-300); Sodium 130 mEq/L (136-145); eGFR For African Americans > 60 (> 60); eGFR For Non-African Americans > 60 (> 60)
[2021-01-16] MEDS ORDERED: Ibuprofen 800 MG TABLET PO ONE ×2 (03:48→20:18)
[2021-01-16] MEDS: *HR* HYDROcodone/Acet 5/325 mg TABLET PO PRN ×2 (04:47→14:51)
[2021-01-16 05:55] LABS: mecA Methicillin-Resist Gene DETECTED (Not Detect)
[2021-01-16 05:56] LABS: Acinetobacter baumannii by PCR Not Detected (Not Detect); Candida albicans by PCR Not Detected (Not Detect); Candida glabrata by PCR Not Detected (Not Detect); Candida krusei by PCR Not Detected (Not Detect); Candida parapsilosis by PCR Not Detected (Not Detect); Candida tropicalis by PCR Not Detected (Not Detect); Enterobacter cloacae Cmplx PCR Not Detected (Not Detect); Enterobacteriaceae by PCR Not Detected (Not Detect); Enterococcus by PCR Not Detected (Not Detect); Escherichia coli by PCR Not Detected (Not Detect); Klebsiella oxytoca by PCR Not Detected (Not Detect); Klebsiella pneumoniae by PCR Not Detected (Not Detect); Proteus by PCR Not Detected (Not Detect); Pseudomonas aeruginosa by PCR Not Detected (Not Detect); Serratia marcescens by PCR Not Detected (Not Detect); Staphylococcus aureus by PCR Not Detected (Not Detect); Staphylococcus by PCR DETECTED (Not Detect); Streptococcus agalactiae(B)PCR Not Detected (Not Detect); Streptococcus by PCR Not Detected (Not Detect); Streptococcus pneumoniae PCR Not Detected (Not Detect); Streptococcus pyogenes (A) PCR Not Detected (Not Detect)
[2021-01-16] MEDS ORDERED: Potassium Chloride Elixir 20 MEQ/15 ML UDC PO ONE (08:16)
[2021-01-16] MEDS: cefTRIAXone 1,000 MG in Water for inj. (sterile) 10 ML IVP ONE (08:48)
[2021-01-16 09:00] LABS: Amphetamine Screen,Urine Negative ng/mL (Cutoff=1000); Barbiturate Screen,Urine Negative ng/mL (Cutoff=200); Benzodiazepines Screen,Urine Negative ng/mL (Cutoff=200); Cannabinoid Screen,Urine Negative ng/mL (Cutoff = 50); Cocaine Screen,Urine Negative ng/mL (Cutoff= 300); Opiate Screen,Urine Negative ng/mL (Cutoff=300); Phencyclidine Screen,Urine Negative ng/mL (Cutoff=25)
[2021-01-16] MEDS ORDERED: cefTRIAXone 1,000 MG in Water for inj. (sterile) 10 ML IVP SCH (09:00)
[2021-01-16] MEDS: Acetaminophen 325 MG TABLET PO PRN (15:54)
[2021-01-16] MEDS: Vancomycin 1,500 MG/265 ML IV.SOLN IVPB SCH (16:28)
[2021-01-16] MEDS: *HR* Heparin 5,000 UNIT/ML VIAL SQ SCH (17:44)
[2021-01-16] MEDS ORDERED: Perflutren Lipid Microsphere 1.3 ML in 0.9 % Sodium Chloride 8.7 ML IVP PRN (17:46)
[2021-01-17] MEDS: Vancomycin 1,500 MG/265 ML IV.SOLN IVPB SCH ×2 (04:09→16:19)
[2021-01-17] MEDS: *HR* Heparin 5,000 UNIT/ML VIAL SQ SCH ×2 (05:25→17:48)
[2021-01-17 06:13] LABS: Basophils % 0.4 %; Eosinophils # 0.1 K/mcL (0.0-0.6); Eosinophils % 1.7 %; Hemoglobin 9.3 g/dL (12.9-16.9); Immature Granulocytes % 0.6 % (0-4); Lymphocytes # 1.1 K/mcL (0.6-4.6); Lymphocytes % 20.3 %; Mean Corpuscular HGB Conc 33.2 g/dL (31.6-35.5); Mean Corpuscular Hemoglobin 34.4 pg (28.0-33.3); Mean Corpuscular Volume 103.7 fL (83.0-100.0); Mean Platelet Volume 9.1 fL (9.4-12.4); Monocytes # 0.8 K/mcL (0.0-1.3); Neutrophils # 3.4 K/mcL (1.6-8.9); Platelet Count 396 K/mcL (140-400); Red Cell Distribution Width 13.1 % (11.5-14.5); White Blood Count 5.4 K/mcL (4.3-11.1)
[2021-01-17 06:31] LABS: BUN/Creatinine Ratio 13 (6-26); Blood Urea Nitrogen 13 mg/dL (6-20); Calcium 8.7 mg/dL (8.6-10.3); Carbon Dioxide 24 mEq/L (23-29); Chloride 103 mEq/L (98-107); Glucose 121 mg/dL (70-105); Osmolality,Calculated 283 (280-300); Potassium 3.2 mEq/L (3.5-5.1); Sodium 136 mEq/L (136-145); eGFR For African Americans > 60 (> 60); eGFR For Non-African Americans > 60 (> 60)
[2021-01-17 07:02] LABS: Platelet Estimate Normal (Normal)
[2021-01-17] MEDS ORDERED: Isovue-370 500 ML BOTTLE IVP ONE (13:39)
[2021-01-17] MEDS: Acetaminophen 325 MG TABLET PO PRN (14:17)
[2021-01-17 17:18] LABS: Rheumatoid Factor < 10 IU/mL (Less than 14)
[2021-01-17 17:26] LABS: Procalcitonin 0.94 ng/mL (0.00-0.15)
[2021-01-17] MEDS: *HR* HYDROcodone/Acet 5/325 mg TABLET PO PRN (17:47)
[2021-01-17] MEDS ORDERED: *HR* OxyCODONE/APAP 5/325 TABLET PO PRN (20:52)
[2021-01-17] MEDS ORDERED: *HR* HYDROcodone/Acet 5/325 mg TABLET PO PRN (20:52)
[2021-01-18] MEDS: Vancomycin 1,750 MG/517.5 ML IV.SOLN IVPB SCH ×2 (04:42→16:55)
[2021-01-18] MEDS: *HR* Heparin 5,000 UNIT/ML VIAL SQ SCH ×2 (04:42→16:56)
[2021-01-18] MEDS ORDERED: 0.9 % Sodium Chloride 500 ML ONE (09:14)
[2021-01-18 12:56] LABS: Source,Synovial Fluid Left hip
[2021-01-18 14:51] LABS: Appearance,Synovial Fluid Cloudy (Clear-Hazy); Color,Synovial Fluid Straw (Straw)
[2021-01-19 03:02] LABS: Hematocrit 27.5 % (37.5-50.1); Hemoglobin 9.5 g/dL (12.9-16.9); Mean Corpuscular HGB Conc 34.5 g/dL (31.6-35.5); Mean Corpuscular Hemoglobin 34.9 pg (28.0-33.3); Mean Corpuscular Volume 101.1 fL (83.0-100.0); Mean Platelet Volume 9.3 fL (9.4-12.4); Platelet Count 463 K/mcL (140-400); Red Blood Count 2.72 M/mcL (4.19-5.50); Red Cell Distribution Width 12.9 % (11.5-14.5); White Blood Count 6.2 K/mcL (4.3-11.1)
[2021-01-19 03:13] LABS: BUN/Creatinine Ratio 11 (6-26); Blood Urea Nitrogen 11 mg/dL (6-20); Calcium 8.7 mg/dL (8.6-10.3); Carbon Dioxide 24 mEq/L (23-29); Chloride 104 mEq/L (98-107); Glucose 114 mg/dL (70-105); Osmolality,Calculated 284 (280-300); Potassium 3.6 mEq/L (3.5-5.1); Sodium 137 mEq/L (136-145); eGFR For African Americans > 60 (> 60); eGFR For Non-African Americans > 60 (> 60)
[2021-01-19] MEDS: Vancomycin 1,750 MG/517.5 ML IV.SOLN IVPB SCH ×2 (04:56→16:49)
[2021-01-19] MEDS: *HR* Heparin 5,000 UNIT/ML VIAL SQ SCH ×2 (05:00→18:32)
[2021-01-19] MEDS ORDERED: Lidocaine -MPF 1% 5 ML AMPUL INFILT ONE (15:40)
[2021-01-20] MEDS: Vancomycin 1,750 MG/517.5 ML IV.SOLN IVPB SCH ×2 (04:28→16:33)
[2021-01-20] MEDS: *HR* Heparin 5,000 UNIT/ML VIAL SQ SCH ×2 (05:56→16:34)
[2021-01-20 07:41] LABS: Basophils % 0.1 %; Eosinophils # 0.1 K/mcL (0.0-0.6); Eosinophils % 1.5 %; Hematocrit 27.4 % (37.5-50.1); Hemoglobin 9.1 g/dL (12.9-16.9); Immature Granulocytes % 0.7 % (0-4); Lymphocytes # 1.4 K/mcL (0.6-4.6); Lymphocytes % 17.3 %; Mean Corpuscular HGB Conc 33.2 g/dL (31.6-35.5); Mean Corpuscular Hemoglobin 33.6 pg (28.0-33.3); Mean Corpuscular Volume 101.1 fL (83.0-100.0); Mean Platelet Volume 9.4 fL (9.4-12.4); Monocytes # 0.5 K/mcL (0.0-1.3); Monocytes % 6.4 %; Platelet Count 485 K/mcL (140-400); Red Blood Count 2.71 M/mcL (4.19-5.50); Red Cell Distribution Width 12.7 % (11.5-14.5); White Blood Count 8.1 K/mcL (4.3-11.1)
[2021-01-20 08:08] LABS: BUN/Creatinine Ratio 13 (6-26); Blood Urea Nitrogen 10 mg/dL (6-20); Calcium 8.3 mg/dL (8.6-10.3); Carbon Dioxide 27 mEq/L (23-29); Chloride 102 mEq/L (98-107); Glucose 107 mg/dL (70-105); Osmolality,Calculated 282 (280-300); Potassium 3.6 mEq/L (3.5-5.1); Sodium 136 mEq/L (136-145); eGFR For African Americans > 60 (> 60); eGFR For Non-African Americans > 60 (> 60)
[2021-01-20 15:08] VITALS: BP 111/65; PULSE 68; TEMP 98.3; O2SAT 93
== END 2021-01-20 19:38 | disposition home health service (06) | DRG 872 ==
LOC: EMEROOARM 09:15 → 3NENU 09:15 → SUATTDRO 14:25 → 3NENU 15:13 → 3ANU 15:32 → SUATTDRO 01-16 13:45
PROVIDERS: ADMIT Internal Medicine; ATTEND Internal Medicine
PROC: IRPERMA (2021-01-18 12:00)

== ENCOUNTER 2021-05-16 16:06 | Inpatient (IN) ==
[2021-05-16] MEDS ORDERED: Naloxone 0.4 MG/ML INJ IVP PRN (17:09)
[2021-05-16] MEDS ORDERED: Melatonin 3 MG TABLET PO PRN (17:09)
[2021-05-16] MEDS ORDERED: Ondansetron 4 MG/2 ML VIAL IVP PRN (17:09)
[2021-05-16 17:53] LABS: Basophils % 0.1 %; Eosinophils # 0.4 K/mcL (0.0-0.6); Eosinophils % 4.2 %; Hematocrit 30.2 % (37.5-50.1); Hemoglobin 9.9 g/dL (12.9-16.9); Immature Granulocytes % 0.5 % (0-4); Lymphocytes # 0.9 K/mcL (0.6-4.6); Lymphocytes % 10.2 %; Mean Corpuscular HGB Conc 32.8 g/dL (31.6-35.5); Mean Corpuscular Hemoglobin 32.8 pg (28.0-33.3); Mean Platelet Volume 9.5 fL (9.4-12.4); Monocytes # 0.6 K/mcL (0.0-1.3); Monocytes % 6.9 %; Neutrophils # 6.7 K/mcL (1.6-8.9); Platelet Count 325 K/mcL (140-400); Red Blood Count 3.02 M/mcL (4.19-5.50); Red Cell Distribution Width 13.1 % (11.5-14.5); Segmented Neutrophils % 78.1 %; White Blood Count 8.5 K/mcL (4.3-11.1)
[2021-05-16] MEDS ORDERED: Acetaminophen 325 MG TABLET PO PRN (18:04)
[2021-05-16 18:39] LABS: BUN/Creatinine Ratio 22 (6-26); Blood Urea Nitrogen 30 mg/dL (6-20); Calcium 9.2 mg/dL (8.6-10.3); Carbon Dioxide 19 mEq/L (23-29); Chloride 108 mEq/L (98-107); Glucose 102 mg/dL (70-105); Osmolality,Calculated 292 (280-300); Potassium 3.7 mEq/L (3.5-5.1); Sodium 138 mEq/L (136-145); eGFR For African Americans > 60 (> 60); eGFR For Non-African Americans 53 (> 60)
[2021-05-16 19:54] LABS: Adenovirus Not Detected (Not Detect); Bordetella Pertussis Not Detected (Not Detect); Chlamydophila pneumoniae Not Detected (Not Detect); Coronavirus 229E Not Detected (Not Detect); Coronavirus HKU1 Not Detected (Not Detect); Coronavirus NL63 Not Detected (Not Detect); Coronavirus OC43 Not Detected (Not Detect); Human Metapneumovirus Not Detected (Not Detect); Human Rhinovirus/Enterovirus Not Detected (Not Detect); Influenza A Subtype 2009 H1 Not Detected (Not Detect); Influenza B Not Detected (Not Detect); Mycoplasma pneumoniae Not Detected (Not Detect); Parainfluenza Virus 1 Not Detected (Not Detect); Parainfluenza Virus 2 Not Detected (Not Detect); Parainfluenza Virus 3 Not Detected (Not Detect); Parainfluenza Virus 4 Not Detected (Not Detect); Respiratory Syncytial Virus Not Detected (Not Detect); SARS-CoV-2 Not Detected (Not Detect)
[2021-05-16] MEDS: levoFLOXacin 750 MG/150 ML 750 MG/150 ML BAG IVPB SCH (19:59)
[2021-05-16] MEDS: *HR* OxyCODONE/APAP 5/325 TABLET PO PRN (20:00)
[2021-05-16] MEDS: ceFAZolin 2,000 MG in 0.9 % Sodium Chloride 100 ML IVPB SCH (21:39)
[2021-05-17] MEDS: ceFAZolin 2,000 MG in 0.9 % Sodium Chloride 100 ML IVPB SCH ×3 (05:06→22:03)
[2021-05-17] MEDS: *HR* OxyCODONE/APAP 5/325 TABLET PO PRN ×2 (05:07→20:27)
[2021-05-17 11:29] LABS: Basophils % 0.3 %; Eosinophils # 0.4 K/mcL (0.0-0.6); Eosinophils % 5.4 %; Hematocrit 30.7 % (37.5-50.1); Immature Granulocytes % 0.3 % (0-4); Lymphocytes # 0.9 K/mcL (0.6-4.6); Lymphocytes % 13.6 %; Mean Corpuscular HGB Conc 32.6 g/dL (31.6-35.5); Mean Corpuscular Hemoglobin 32.2 pg (28.0-33.3); Mean Corpuscular Volume 98.7 fL (83.0-100.0); Mean Platelet Volume 9.7 fL (9.4-12.4); Monocytes # 0.7 K/mcL (0.0-1.3); Monocytes % 9.8 %; Neutrophils # 4.8 K/mcL (1.6-8.9); Platelet Count 294 K/mcL (140-400); Red Blood Count 3.11 M/mcL (4.19-5.50); Red Cell Distribution Width 13.2 % (11.5-14.5); Segmented Neutrophils % 70.6 %; White Blood Count 6.8 K/mcL (4.3-11.1)
[2021-05-17 11:46] LABS: BUN/Creatinine Ratio 26 (6-26); Blood Urea Nitrogen 20 mg/dL (6-20); Calcium 9.1 mg/dL (8.6-10.3); Carbon Dioxide 22 mEq/L (23-29); Chloride 105 mEq/L (98-107); Glucose 132 mg/dL (70-105); Osmolality,Calculated 284 (280-300); Potassium 3.6 mEq/L (3.5-5.1); Sodium 135 mEq/L (136-145); eGFR For African Americans > 60 (> 60); eGFR For Non-African Americans > 60 (> 60)
[2021-05-17] MEDS: levoFLOXacin 750 MG/150 ML 750 MG/150 ML BAG IVPB SCH (20:26)
[2021-05-18 03:16] VITALS: TEMP 98.5
[2021-05-18] MEDS: ceFAZolin 2,000 MG in 0.9 % Sodium Chloride 100 ML IVPB SCH (03:33)
[2021-05-18 03:34] LABS: Basophils % 0.1 %; Eosinophils # 0.3 K/mcL (0.0-0.6); Eosinophils % 4.1 %; Hematocrit 30.7 % (37.5-50.1); Hemoglobin 9.9 g/dL (12.9-16.9); Immature Granulocytes % 0.4 % (0-4); Lymphocytes # 1.2 K/mcL (0.6-4.6); Lymphocytes % 14.6 %; Mean Corpuscular HGB Conc 32.2 g/dL (31.6-35.5); Mean Corpuscular Hemoglobin 31.8 pg (28.0-33.3); Mean Corpuscular Volume 98.7 fL (83.0-100.0); Mean Platelet Volume 9.4 fL (9.4-12.4); Monocytes # 0.6 K/mcL (0.0-1.3); Monocytes % 6.9 %; Neutrophils # 5.9 K/mcL (1.6-8.9); Platelet Count 332 K/mcL (140-400); Red Blood Count 3.11 M/mcL (4.19-5.50); Red Cell Distribution Width 12.9 % (11.5-14.5); Segmented Neutrophils % 73.9 %
[2021-05-18 03:46] LABS: BUN/Creatinine Ratio 18 (6-26); Blood Urea Nitrogen 14 mg/dL (6-20); Calcium 8.9 mg/dL (8.6-10.3); Carbon Dioxide 22 mEq/L (23-29); Chloride 104 mEq/L (98-107); Glucose 114 mg/dL (70-105); Osmolality,Calculated 281 (280-300); Potassium 3.5 mEq/L (3.5-5.1); Sodium 135 mEq/L (136-145); eGFR For African Americans > 60 (> 60); eGFR For Non-African Americans > 60 (> 60)
[2021-05-18] MEDS: *HR* OxyCODONE/APAP 5/325 TABLET PO PRN (04:30)
[2021-05-18 08:33] VITALS: BP 134/77; PULSE 93; O2SAT 99
== END 2021-05-18 10:38 | disposition home or self-care (01) | DRG 872 ==
LOC: 3ANU → SUATTDRO 16:17
PROVIDERS: ADMIT Pharmacist; ATTEND Internal Medicine